=== PATIENT | female | born 1950 | race Caucasian/White ===

== ENCOUNTER 2017-01-05 03:21 | Emergency (ER) | payer MEDICARE, OTHER ==
[~2017-01-05] VITALS: Ht 157.5 cm; Wt 130.6 kg
[~2017-01-05 03:21] MED LIST: ALLO100T PO; ATOR80TA26 PO; BUPR-51 PO; BUSP15TA3 PO; CALC0.25 PO; CARV25TA33 PO; CHOL100055 PO; CITA-108 PO; FURO40TA5 PO; HYDR-4246 PO; LOSA100T44 PO; METO25TA6 PO; POTA10TA14 PO; TRAM-277 PO
--- OUTSIDE RECORDS SUMMARY | 2017-01-05 03:32 | XMS REPORT | Continuity of Care Document ---
Author Author [facility] Organization [facility] Address Unknown Phone Unavailable Allergies Medications Problems Procedures Results Encounters ACCT No. Visit Date/Time Discharge Status Pt. Type Provider Facility Loc./Unit Complaint [id number] 01/05/2014 09:37:00 01/05/2014 23 :59:59 [facility] Outpatient [id number] 12/14/2013 10:56:00 12/14/2013 23 :59:59 [facility] [id number] 11/27/2013 10:42:00 11/27/2013 23 :59:59 [facility] Outpatient
--- OUTSIDE RECORDS SUMMARY | 2017-01-05 03:32 | XMS REPORT ---
Author Author Ingrid Rendon [facility] eClinicalWorks Address Unknown Phone Unavailable Care Team Providers Care Alteration Manager Name Role Phone Ingrid Rendon Unavailable Allergies No Known Allergies Problems Problem Type Condition Code Onset Dates Condition Status Assessment Cough R05 Active Assessment Solitary pulmonary nodule R91.1 Active Problem Essential (primary) hypertension I10 Active Problem Chronic kidney disease, stage 3 (moderate) N18.3 Active Problem Unspecified asthma, uncomplicated J45.909 Active Problem Essential hypertension, benign 401.1 Active Problem Depressive disorder, not elsewhere classified 311 Active Problem Chronic kidney disease, Stage III (moderate) 585.3 Active Problem Congestive heart failure, unspecified I50.9 Active Medications No Known Medications Results No Known Results Summary Purpose eClinicalWorks Submission
--- OUTSIDE RECORDS SUMMARY | 2017-01-05 03:32 | XMS REPORT ---
Author Author Ingrid Rendon [facility] eClinicalWorks Address Unknown Phone Unavailable Care Team Providers Care Machine Hose Cutter Name Role Phone Ingrid Rendon Unavailable Allergies No Known Allergies Problems Problem Type Condition Code Onset Dates Condition Status Problem Essential (primary) hypertension I10 Active Problem [...]
--- OUTSIDE RECORDS SUMMARY | 2017-01-05 03:32 | XMS REPORT ---
Author Author Ingrid Rendon [facility] eClinicalWorks Address Unknown Phone Unavailable Care Team Providers Care Grocery Clerk Checking Name Role Phone Ingrid Rendon Unavailable Allergies No Known Allergies Problems Problem Type Condition Code Onset Dates Condition Status Problem Chronic kidney disease, stage 3 (moderate) N18.3 Active Problem Chronic kidney disease, Stage III (moderate) 585.3 Active Problem Essential (primary) hypertension I10 Active Problem Depressive disorder, not elsewhere classified 311 Active Problem Congestive heart failure, unspecified 428.0 Active Problem Essential hypertension, benign 401.1 Active Medications No Known Medications Results No Known Results Summary Purpose eClinicalWorks Submission
--- OUTSIDE RECORDS SUMMARY | 2017-01-05 03:32 | XMS REPORT ---
Author Author Ingrid Rendon [facility] eClinicalWorks Address Unknown Phone Unavailable Care Team Providers Care Air Pollution Auditor Name Role Phone Ingrid Rendon Unavailable Allergies [...]
--- OUTSIDE RECORDS SUMMARY | 2017-01-05 03:32 | XMS REPORT ---
Author Ingrid Rivera eClinicalWorks Address Unknown Phone Unavailable Care Team Providers Care Outside Sales Consultant Name Role Phone Ingrid Rendon Unavailable Allergies, Adverse Reactions, Alerts Substance Reaction Event Type Codeine Phosphate vomiting, stomach upset Drug Allergy Problems Problem Type Condition Code Onset Dates Condition Status Assessment Other specified respiratory disorders J98.8 Active Assessment Congestive heart failure, unspecified I50.9 Active Assessment Solitary pulmonary nodule R91.1 Active Assessment Cough R05 Active Assessment Dependence on supplemental oxygen Z99.81 Active Problem Essential (primary) hypertension I10 Active Problem Chronic kidney disease, stage 3 (moderate) N18.3 Active Problem Unspecified asthma, uncomplicated J45.909 Active Problem Essential hypertension, benign 401.1 Active Problem Depressive disorder, not elsewhere classified 311 Active Problem Chronic kidney disease, Stage III (moderate) 585.3 Active Problem Congestive heart failure, unspecified I50.9 Active Medications Medication Code System Code Instructions Start Date End Date Status Dosage Potassium Citrate ND 0 not defined Carvedilol [facility] [address]-37 25 MG Orally Twice a day 1 tablet with food PredniSONE [facility] [address]-50 10 MG Orally as directed. Jul 06, 2016 4 tabs daily X3 days then 2 tabs daily X3 days then 1 tab daily X3 days then stop. ProAir HFA [facility] [address]-53 108 (90 Base) MCG/ACT Inhalation every 4-6 hrs May 28, 2016 2 puffs as needed Calcitriol [facility] [address]-74 0.25 MCG Orally Once a day 1 capsule Levaquin [facility] [address]-30 750 MG Orally every 24 hrs Jul 06, 2016 1 tablet Vitamin D [facility] 40445-[address] 400 UNIT Orally not defined Losartan Potassium [facility] [address]-19 100 MG Orally Once a day 1 tablet Allopurinol [facility] [address]-47 100 MG Orally Once a day Oct 14, 2016 1 tablet BuPROPion HCl (XL) [facility] [address]-09 150 MG Orally Once a day Nov 30, 2014 1 tablet in the morning Zolpidem Tartrate [facility] [address]-64 10 MG Orally Once a day prn 1/ 2-1 tablet Furosemide [facility] [address]-67 40 MG Orally Once a day 1 tablet BusPIRone HCl [facility] [address]-34 15 MG Orally Twice a day 1 tablet Tessalon Perles [facility] [address]-39 100 MG Orally every 8 hours Jul 06, 2016 1 to 2 capsules as needed every 8 hours for cough/congestion Atorvastatin Calcium [facility] [address]-40 80 MG Orally Once a day 1 tablet Citalopram Hydrobromide [facility] [address]-37 40 MG Orally Once a day 1 tablet Hydrocodone-Acetaminophen [facility] [address]-25 7.5-325 MG Orally every 4-6 hrs 1 tablet as needed Procedures Procedure Coding System Code Date OFFICE VISIT, EST-LOW COMPLEXITY (15 MIN.) CPT-4 47412 Jul 30, 2016 [facility] visit Established Patient CPT-4 G0467 Jul 30, 2016 Vital Signs Date/Time: Jul 30, 2016 Temperature 98.0 F Height 62 in Weight 290.8 lbs Blood Pressure Diastolic 80 mm Hg Blood Pressure Systolic 132 mm Hg Cardiac Monitoring Heart Rate 70 /min BMI 53.18 Index Oximetry 97 % Respiratory Rate 18 /min Results No Known Results Summary Purpose eClinicalWorks Submission
--- OUTSIDE RECORDS SUMMARY | 2017-01-05 03:32 | XMS REPORT ---
Author Author Ingrid Rendon [facility] eClinicalWorks Address Unknown Phone Unavailable Care Team Providers Care Hair Boiler Name Role Phone Ingrid Rendon Unavailable Allergies No Known Allergies Problems Problem Type Condition Code Onset Dates Condition Status Problem Congestive heart failure, unspecified 428.0 Active Problem Essential hypertension, benign 401.1 Active Problem Chronic kidney disease, Stage III (moderate) 585.3 Active Problem Depressive disorder, not elsewhere classified 311 Active Medications Medication Code System Code Instructions Start Date End Date Status Dosage Atorvastatin Calcium [facility] [address]-26 80 MG Orally Once a day 1 tablet Results No Known Results Summary Purpose eClinicalWorks Submission
--- OUTSIDE RECORDS SUMMARY | 2017-01-05 03:32 | XMS REPORT ---
Author Geronimo Joyce Organization eClinicalWorks Address Unknown Phone Unavailable Care Team Providers Care Health And Safety Specialist Name Role Phone Geronimo Wan CP Unavailable Allergies, Adverse Reactions, Alerts Substance Reaction Event Type Codeine Phosphate vomiting, stomach upset Drug Allergy Problems Problem Type Condition Code Onset Dates Condition Status Assessment Dizziness and giddiness R42 Active Assessment Acute bronchitis due to other specified organisms J20.8 Active Assessment Solitary pulmonary nodule R91.1 Active Assessment Diarrhea, unspecified R19.7 Active Problem Essential (primary) hypertension I10 Active [...] Date End Date Status Dosage Atorvastatin Calcium [facility] [address]-81 80 MG Orally Once a day 1 tablet Carvedilol [facility] [address]-91 25 MG Orally Twice a day 1 tablet with food ProAir HFA [facility] [address]-53 108 (90 Base) MCG/ACT Inhalation every 4-6 hrs May 28, 2016 2 puffs as needed Calcitriol [facility] [address]-79 0.25 MCG Orally Once a day 1 capsule Hydrocodone-Acetaminophen [facility] [address]-68 7.5-325 MG Orally every 4-6 hrs 1 tablet as needed Vitamin D [facility] [address] 400 UNIT Orally not defined Levaquin [facility] [address]-68 750 MG Orally every 24 hrs Jul 06, 2016 1 tablet PredniSONE [facility] [address]-66 10 MG Orally as directed. Jul 06, 2016 4 tabs daily X3 days then 2 tabs daily X3 days then 1 tab daily X3 days then stop. BusPIRone HCl [facility] [address]-49 15 MG Orally Twice a day 1 tablet Allopurinol [facility] [address]-76 100 MG Orally Once a day Oct 14, 2016 1 tablet Zolpidem Tartrate [facility] [address]-88 10 MG Orally Once a day prn 1/ 2-1 tablet Furosemide [facility] [address]-15 40 MG Orally Once a day 1 tablet BuPROPion HCl (XL) [facility] [address]-44 150 MG Orally Once a day Nov 30, 2014 1 tablet in the morning Tessalon Perles [facility] [address]-29 100 MG Orally every 8 hours Jul 06, 2016 1 to 2 capsules as needed every 8 hours for cough/congestion Potassium Citrate NDC 0 not defined Citalopram Hydrobromide [facility] [address]-05 40 MG Orally Once a day 1 tablet Losartan Potassium [facility] [address]-80 100 MG Orally Once a day 1 tablet Procedures Procedure Coding System Code Date OFFICE VISIT, EST-LOW COMPLEXITY (15 MIN.) CPT-4 68157 Jul 10, 2016 [facility] visit Established Patient CPT-4 G0467 Jul 10, 2016 Vital Signs Date/Time: Jul 10, 2016 Temperature 98.3 F Height 62 in Weight 284.4 lbs Blood Pressure Diastolic 82 mm Hg Blood Pressure Systolic 138 mm Hg Cardiac Monitoring Heart Rate 84 /min BMI 52.01 Index Oximetry 94 % Results No Known Results Summary Purpose eClinicalWorks Submission
--- OUTSIDE RECORDS SUMMARY | 2017-01-05 03:33 | XMS REPORT ---
Author Author Ingrid Rendon [facility] eClinicalWorks Address Unknown Phone Unavailable Care Team Providers Care Solar Crew Member Name Role Phone Ingrid Rendon Unavailable Allergies No Known Allergies Problems Problem Type Condition ICD-9 Code Onset Dates Condition Status Problem Congestive heart failure, unspecified 428.0 Active Problem Essential hypertension, benign 401.1 Active Problem Chronic kidney disease, Stage III (moderate) 585.3 Active Problem Depressive disorder, not elsewhere classified 311 Active Medications No Known Medications Results No Known Results Summary Purpose eClinicalWorks Submission
--- OUTSIDE RECORDS SUMMARY | 2017-01-05 03:33 | XMS REPORT ---
Author Ingrid Rivera eClinicalWorks Address Unknown Phone Unavailable Care Team Providers Care Machine Operator General Name Role Phone Ingrid Rendon Unavailable Allergies, Adverse Reactions, Alerts Substance Reaction Event Type Codeine Phosphate vomiting, stomach upset Drug Allergy Problems Problem Type Condition Code Onset Dates Condition Status Problem Congestive heart failure, unspecified 428.0 Active Problem Essential hypertension, benign 401.1 Active Problem Chronic kidney disease, Stage III (moderate) 585.3 Active Assessment Other viral agents as the cause of diseases classified elsewhere B97.89 Active Assessment Other fatigue R53.83 Active Problem Depressive disorder, not elsewhere classified 311 Active Assessment Other nonspecific lymphadenitis I88.8 Active Medications Medication Code System Code Instructions Start Date End Date Status Dosage Vitamin D [facility] [address] 400 UNIT Orally not defined Carvedilol [facility] [address]-16 25 MG Orally Twice a day 1 tablet with food Atorvastatin Calcium [facility] [address]-35 80 MG Orally Once a day 1 tablet Potassium Citrate ND 0 not defined Allopurinol [facility] [address]-06 100 MG Orally Once a day 1 tablet Citalopram Hydrobromide [facility] [address]-91 40 MG Orally Once a day 1 tablet Losartan Potassium [facility] [address]-25 100 MG Orally Once a day 1 tablet BuPROPion HCl (XL) [facility] [address]-59 150 MG Orally Once a day Nov 30, 2014 1 tablet in the morning BusPIRone HCl [facility] [address]-58 15 MG Orally Twice a day 1 tablet Furosemide [facility] [address]-79 40 MG Orally Once a day 1 tablet Zolpidem Tartrate [facility] [address]-50 10 MG Orally Once a day prn 1/ 2-1 tablet Calcitriol [facility] [address]-85 0.25 MCG Orally Once a day 1 capsule Procedures Procedure Coding System Code Date OFFICE VISIT, EST-LOW COMPLEXITY (15 MIN.) CPT-4 21662 Aug 24, 2015 COMPLETE CBC W/AUTO DIFF WBC CPT-4 07154 Aug 24, 2015 [facility] visit Established Patient CPT-4 G0467 Aug 24, 2015 IH CMP CPT-4 77420 Aug 24, 2015 TSH WITH REFLEX T4 CPT-4 72615 Aug 24, 2015 Vital Signs Date/Time: Aug 24, 2015 Height 62 in Weight 289.25 lbs Temperature 98.2 F Blood Pressure Diastolic 70 mm Hg Blood Pressure Systolic 132 mm Hg Cardiac Monitoring Heart Rate 76 /min BMI 52.90 Index Respiratory Rate 16 /min Results Name Result Date Reference Range Unit Abnormality Flag Ultrasound : Neck In House CMP CBC With Platelet and Differential Summary Purpose eClinicalWorks Submission
--- OUTSIDE RECORDS SUMMARY | 2017-01-05 03:33 | XMS REPORT ---
Author Author Jose Lagos [facility] eClinicalWorks Address Unknown Phone Unavailable Care Team Providers Care Chief Resource Officer Name Role Phone Jose Lagos CP Unavailable Allergies, Adverse Reactions, Alerts Substance Reaction Event Type Codeine Phosphate vomiting, stomach upset Drug Allergy Problems Problem Type Condition Code Onset Dates Condition Status Problem Chronic kidney disease, stage 3 (moderate) N18.3 Active Problem Chronic kidney disease, Stage III (moderate) 585.3 Active Problem Essential (primary) hypertension I10 Active Problem Depressive disorder, not elsewhere classified 311 Active Assessment Encounter for dental examination and cleaning without abnormal findings Z01.20 Active Problem Congestive heart failure, unspecified 428.0 Active Problem Essential hypertension, benign 401.1 Active Medications Medication Code System Code Instructions Start Date End Date Status Dosage BusPIRone HCl [facility] [address]-58 15 MG Orally Twice a day 1 tablet Atorvastatin Calcium [facility] [address]-84 80 MG Orally Once a day 1 tablet Potassium Citrate NDC 0 not defined Allopurinol [facility] [address]-29 100 MG Orally Once a day Oct 14, 2016 1 tablet Furosemide [facility] [address]-91 40 MG Orally Once a day 1 tablet Zolpidem Tartrate [facility] [address]-76 10 MG Orally Once a day prn 1/ 2-1 tablet Citalopram Hydrobromide [facility] [address]-23 40 MG Orally Once a day 1 tablet Carvedilol [facility] [address]-75 25 MG Orally Twice a day 1 tablet with food Vitamin D [facility] [address] 400 UNIT Orally not defined Losartan Potassium [facility] [address]-11 100 MG Orally Once a day 1 tablet BuPROPion HCl (XL) [facility] [address]-86 150 MG Orally Once a day Nov 30, 2014 1 tablet in the morning Calcitriol [facility] [address]-37 0.25 MCG Orally Once a day 1 capsule Procedures Procedure Coding System Code Date INTRAORL - CMPL SERIES CODE 50736 CPT-4 D0210 May 21, 2016 COMP ORAL EVALUATION - NEW/EST PT CPT-4 D0150 May 21, 2016 Results No Known Results Summary Purpose eClinicalWorks Submission
--- OUTSIDE RECORDS SUMMARY | 2017-01-05 03:33 | XMS REPORT ---
Author Ingrid Rivera [facility] eClinicalWorks Address Unknown Phone Unavailable Care Team Providers Care Cw Operator Name Role Phone Ingrid Rendon Unavailable Allergies No Known Allergies Problems Problem Type Condition ICD-9 Code Onset Dates Condition Status Assessment Chronic kidney disease, Stage III (moderate) 585.3 Active Problem Congestive heart failure, unspecified 428.0 Active Problem Essential hypertension, benign 401.1 Active Problem Chronic kidney disease, Stage III (moderate) 585.3 Active Assessment Unspecified vitamin D deficiency 268.9 Active Assessment Secondary hyperparathyroidism (of renal origin) 588.81 Active Problem Depressive disorder, not elsewhere classified 311 Active Assessment Gout, unspecified 274.9 Active Medications Medication Code System Code Instructions Start Date End Date Status Dosage Atorvastatin Calcium [facility] [address]-65 80 MG Orally Once a day 1 tablet Zolpidem Tartrate [facility] [address]-66 10 MG Orally Once a day /2-1 tablet Citalopram Hydrobromide [facility] [address]-39 40 MG Orally Once a day 1 1/2 tablet Losartan Potassium [facility] [address]-87 100 MG Orally Once a day 1 tablet BusPIRone HCl [facility] [address]-02 15 MG Orally Twice a day 1 tablet Allopurinol [facility] [address]-62 100 MG Orally Once a day 1 tablet Calcitriol [facility] [address]-35 0.25 MCG Orally Three times a week 1 capsule Carvedilol [facility] [address]-83 25 MG Orally Twice a day 1 tablet with food Vitamin D [facility] [address] 400 UNIT Orally not defined BuPROPion HCl (XL) [facility] [address]-23 150 MG Orally Once a day Nov 30, 2014 1 tablet in the morning Klor-Con M20 [facility] [address]-60 20 MEQ Orally Once a day 1 tablet Furosemide [facility] [address]-99 40 MG Orally Once a day 1 tablet Procedures Procedure Coding System Code Date URIC ACID CPT-4 62522 Jun 27, 2015 RENAL FUNCTION PANEL CPT-4 80014 Jun 27, 2015 PTH CPT-4 72442 Jun 27, 2015 VITAMIN D 25 HYDROXY CPT-4 65489 Jun 27, 2015 Results No Known Results Summary Purpose eClinicalWorks Submission
--- OUTSIDE RECORDS SUMMARY | 2017-01-05 03:33 | XMS REPORT | Continuity of Care Document ---
Author Author Yasmine Bond [facility] Address Unknown Phone Unavailable Care Team Providers Care Client Relations Representative Name Role Phone Robert Zavala PP Unavailable Payers Payer name Insurance type Covered green party ID Authorization(s) Unknown Problems Condition Effective Dates (start - stop) Clinical Status Headache - *Acute Hypertension, Benign - *Chronic Other abnormal blood chemistry - Improved COPD - *Controlled Sleep Apnea - *Controlled CAD, Unspecified - *Controlled Obesity - *Chronic Depression - *Controlled Hypertension, Benign - *Controlled COPD - *Controlled Chronic kidney disease, Stage II (mild) - Mild Other and unspecified hyperlipidemia - *Controlled Migraine - *Controlled Depression - *Controlled Abdominal pain, right upper quadrant - *Resolved Other abnormal blood chemistry - *Chronic Hypertension, Benign - *Chronic COPD - *Chronic Obesity - *Chronic Insomnia, Other - *Chronic Gout, unspecified - *Chronic Osteoarthrosis, generalized, involving unspecified site - * Chronic Diabetes Mellitus Type 2, Uncomplicated - *Controlled Hypertension, Benign - *Chronic Osteoarthrosis, generalized, involving unspecified site - * Controlled COPD - *Controlled Other and unspecified hyperlipidemia - *Controlled Contact dermatitis and other eczema, unspecified cause - *Acute Insomnia, Other - *Chronic Depression - *Controlled CAD, Unspecified - *Chronic COPD - *Chronic Hypertension, Benign - *Chronic Chronic kidney disease, Stage II (mild) - Mild Upper Respiratory Infection, Acute - *Acute OTHER ABNORMAL GLUCOSE - *Chronic Pain in thoracic spine - *Acute COPD - *Chronic Chronic kidney disease, Stage III (moderate) - Moderate Hypertension, Benign - *Chronic Other and unspecified hyperlipidemia - *Chronic Insomnia, Other - *Controlled Depression - *Chronic Gout, unspecified - *Chronic Knee pain - *Acute Edema - *Acute Pain in limb - *Acute Hypertension, benign - *Chronic COPD - *Chronic Chronic kidney disease, stage III (moderate) - Moderate Coronary atherosclerosis - *Chronic Other specified erythematous condition - *Acute Edema - *Acute Cough - *Chronic COPD - *Chronic Dependence on supplemental oxygen - *Chronic COPD - *Chronic CAD, Unspecified - *Chronic Chronic kidney disease, Stage III (moderate) - Moderate Gout, unspecified - *Chronic Fatigue / Malaise - *Chronic Obesity - *Chronic Abdominal Pain - *Acute COPD - *Chronic Hypertension, Benign - *Chronic Chronic kidney disease, Stage II (mild) - Mild Urinary Tract Infection - *Chronic CAD, Unspecified - *Chronic Hypertension, Benign - *Chronic COPD - *Chronic Headache - *Chronic Anxiety - *Chronic Depression - *Chronic Chronic kidney disease, Stage II (mild) - Mild COPD - *Chronic Hypertension, Benign - *Chronic Other and unspecified hyperlipidemia - *Chronic CAD, Unspecified - *Chronic Chronic kidney disease, Stage II (mild) - Mild Depression - *Chronic Insomnia, Other - *Chronic Family History Family Member Diagnosis Age At Onset Status Father (Unknown) CAD Yes Mother (Unknown) Alzheimer's Disease Yes Mother (Unknown) Cancer - breast Yes Social History Social History Element Description Quantity Unknown Allergies, Adverse Reactions, Alerts Substance Reaction Severity Status CODEINE PHOSPHATE vominting Unknown Medications Medication Instructions Dosage Effective Dates (start - stop) Status losartan 50 mg tablet 1 po bid 50 MG - No Longer Active Victoza 3-Billy 0.6 mg/0.1 mL (18 mg/3 mL) subcutaneous pen injector inject 0.6 Milliliter (3.6MG) by subcutaneous route every day 3.6 MG - No Longer Active Celexa 20 mg tablet Take 1 1/2 tabs po qd. 20 MG - No Longer Active Senna Lax 8.6 mg tablet take 2 tablet by oral route every day as needed for constipation 0 - Active budesonide 0.5 mg/2 mL suspension for nebulization inhale 2 milliliter (0.5MG ) by nebulization route every day 0.5 MG - Active furosemide 40 mg tablet take 1 Tablet (40MG) by oral route 2 times every day 40 MG - Active inhale 14/8 cm by nasal route q HS with 02 2 L - Active Proventil HFA 90 mcg/actuation aerosol inhaler inhale 2 puff by inhalation route every 6 hours as needed 0 - Active atorvastatin 80 mg tablet take 1 tablet (80MG) by oral route every day 80 MG - Active Ambien 10 mg tablet take 1/2 - 1 Tablet (5MG) by oral route every night at bedtime as needed for sleep 5 MG - Active [place] 5 mg-325 mg tablet take 1 - 2 Tablet by oral route every 8 hours as needed for pain 0 - Active tramadol 50 mg tablet take 1 - 2 Tablet (50MG) by Oral route every 8 hours as needed 50 MG - Active allopurinol 100 mg tablet 1 po qd - Active sumatriptan 100 mg tablet take 1 tablet (100MG) by oral route at start of migraine. March take 1 po again in 2 hrs prn. 100 MG - Active buspirone 15 mg tablet take 1 tablet (15MG) by oral route 2 times every day 15 MG - Active losartan 50 mg tablet 1 po bid 50 MG - Active Victoza 3-Billy 0.6 mg/0.1 mL (18 mg/3 mL) subcutaneous pen injector inject 0.3 milliliter (1.8MG) by subcutaneous route every day 1.8 MG - Active Coreg 25 mg tablet take 1 tablet (25MG) by oral route 2 times every day with food 25 MG - Active Celexa 40 mg tablet Increase to 1 1/2 tabs po qd. - Active Immunizations Vaccine Date Status Comments flu (split) (3 yrs or older) completed - Completed reason: public agency Results Test Name Date and Time Measure Units Reference Range Abnormal Flag Comments Unknown Vital Signs Date / Time: Height Weight Pulse Rate Blood Pressure Temperature /10:56:00 62.00 in 281.00 lbs 140/80 mm[Hg] 97.5 F Procedures Procedure Date Unknown Encounters Encounter Location Date Patient Visit [facility] Patient Visit [facility] Patient Visit [facility] Patient Visit [facility] Patient Visit [facility] Patient [facility] Patient [facility] Patient [facility] Patient [facility] Patient [facility] Patient [facility] Patient [facility] Patient [facility] Patient [facility] Patient [facility] Patient [facility] Patient [facility] Patient Visit [facility] Patient Visit [facility] Patient Visit [facility] Patient Visit [facility] Advance Directives Directive Effective Date Unknown
--- OUTSIDE RECORDS SUMMARY | 2017-01-05 03:33 | XMS REPORT ---
Author Author Merry Sinha [facility] eClinicalWorks Address Unknown Phone Unavailable Care Team Providers Care Joint Sealer Name Role Phone Merry Sinha Unavailable Allergies, Adverse Reactions, Alerts Substance Reaction Event Type Codeine Phosphate vomiting, stomach upset Drug Allergy Problems Problem Type Condition Code Onset Dates Condition Status Assessment Acute pain of right shoulder M25.511 Active Problem Chronic kidney disease, stage 3 (moderate) N18.3 Active Problem Chronic kidney disease, Stage III (moderate) 585.3 Active Problem Essential (primary) hypertension I10 Active Problem Depressive disorder, not elsewhere classified 311 Active Assessment Congestive heart failure, unspecified I50.9 Active Problem Congestive heart failure, unspecified I50.9 Active Problem Essential hypertension, benign 401.1 Active Medications Medication Code System Code Instructions Start Date End Date Status Dosage Zolpidem Tartrate [facility] [address]-61 10 MG Orally Once a day prn 1/ 2-1 tablet Vitamin D [facility] [address] 400 UNIT Orally not defined Potassium Citrate [facility] 0 not defined Hydrocodone-Acetaminophen [facility] [address]-61 7.5-325 MG Orally every 4-6 hrs 1 tablet as needed Calcitriol [facility] [address]-59 0.25 MCG Orally Once a day 1 capsule BusPIRone HCl [facility] [address]-33 15 MG Orally Twice a day 1 tablet Allopurinol [facility] [address]-07 100 MG Orally Once a day Oct 14, 2016 1 tablet BuPROPion HCl (XL) [facility] [address]-66 150 MG Orally Once a day Nov 30, 2014 1 tablet in the morning Losartan Potassium [facility] [address]-76 100 MG Orally Once a day 1 tablet Furosemide [facility] [address]-39 40 MG Orally Once a day 1 tablet Atorvastatin Calcium [facility] [address]-55 80 MG Orally Once a day 1 tablet ProAir HFA [facility] [address]-74 108 (90 Base) MCG/ACT Inhalation every 4-6 hrs May 28, 2016 2 puffs as needed Citalopram Hydrobromide [facility] [address]-03 40 MG Orally Once a day 1 tablet Carvedilol [facility] [address]-76 25 MG Orally Twice a day 1 tablet with food Flexeril [facility] [address]-80 5 MG Orally three times a day as needed Jun 12, 2016 Jun 22, 2016 1 tablet Procedures Procedure Coding System Code Date OFFICE VISIT, EST-LOW COMPLEXITY (15 MIN.) CPT-4 47502 Jun 12, 2016 [facility] visit Established Patient CPT-4 G0467 Jun 12, 2016 Vital Signs Date/Time: Jun 12, 2016 Temperature 99.4 F Height 62 in Weight 282.4 lbs Blood Pressure Diastolic 67 mm Hg Blood Pressure Systolic 134 mm Hg Cardiac Monitoring Heart Rate 68 /min BMI 51.65 Index Oximetry 92 % Results No Known Results Summary Purpose eClinicalWorks Submission
--- OUTSIDE RECORDS SUMMARY | 2017-01-05 03:33 | XMS REPORT ---
Author Ingrid Rivera eClinicalWorks Address Unknown Phone Unavailable Care Team Providers Care Patient Information Coordinator Name Role Phone Ingrid Rendon Unavailable Allergies, Adverse Reactions, Alerts Substance Reaction Event Type Codeine Phosphate vomiting, stomach upset Drug Allergy Problems Problem Type Condition Code Onset Dates Condition Status Assessment Congestive heart failure, unspecified 428.0 Active Assessment Other bursitis disorders 727.3 Active Problem Congestive heart failure, unspecified 428.0 Active Problem Essential hypertension, benign 401.1 Active Problem Chronic kidney disease, Stage III (moderate) 585.3 Active Assessment Depressive disorder, not elsewhere classified 311 Active Assessment Chronic kidney disease, Stage III (moderate) 585.3 Active Problem Depressive disorder, not elsewhere classified 311 Active Assessment Essential hypertension, benign 401.1 Active Medications Medication Code System Code Instructions Start Date End Date Status Dosage Allopurinol [facility] [address]-98 100 MG Orally Once a day 1 tablet Calcitriol [facility] [address]-33 0.25 MCG Orally Three times a week 1 capsule Atorvastatin Calcium [facility] [address]-14 80 MG Orally Once a day 1 tablet Carvedilol [facility] [address]-89 25 MG Orally Twice a day 1 tablet with food Zolpidem Tartrate [facility] [address]-32 10 MG Orally Once a day 1/2-1 tablet Tramadol HCl [facility] [address]-04 50 MG Orally every 6 hrs February 02, 2015 April 03, 2015 1 tablet as needed Naproxen [facility] [address]-77 500 MG Orally every 12 hrs for 1-2 wks then prn February 03, 2015 March 05, 2015 1 tablet as needed BuPROPion HCl (XL) [facility] [address]-70 150 MG Orally Once a day Nov 30, 2014 1 tablet in the morning PredniSONE [facility] [address]-04 20 MG Orally Once a day February 03, 2015 February 07, 2015 3 tablets x1 day, 2 tabs x1 day, 1 tab x1 day, 1/2 tab x1 day Losartan Potassium [facility] [address]-68 100 MG Orally Once a day 1 tablet BusPIRone HCl [facility] [address]-69 15 MG Orally Twice a day 1 tablet Furosemide [facility] [address]-82 40 MG Orally Once a day 1 tablet Klor-Con M20 [facility] [address]-38 20 MEQ Orally Once a day 1 tablet Citalopram Hydrobromide [facility] [address]-77 40 MG Orally Once a day 1 tablet Procedures Procedure Coding System Code Date OFFICE VISIT, EST-MOD. COMPLEXITY (25 MIN) CPT-4 95532 February 02, 2015 [facility] visit Established Patient CPT-4 G0467 February 02, 2015 Vital Signs Date/Time: February 02, 2015 Height 62 in Weight 293.8 lbs Temperature 98.7 F Blood Pressure Diastolic 63 mm Hg Blood Pressure Systolic 124 mm Hg Cardiac Monitoring Heart Rate 79 /min BMI 53.73 Index Respiratory Rate 14 /min Results No Known Results Summary Purpose eClinicalWorks Submission
--- OUTSIDE RECORDS SUMMARY | 2017-01-05 03:33 | XMS REPORT ---
Author Ingrid Rivera eClinicalWorks Address Unknown Phone Unavailable Care Team Providers Care Clerical Stock Inspector Name Role Phone Ingrid Rendon Unavailable Allergies, Adverse Reactions, Alerts Substance Reaction Event Type Codeine Phosphate vomiting, stomach upset Drug Allergy Problems Problem Type Condition Code Onset Dates Condition Status Problem Congestive heart failure, unspecified 428.0 Active Problem Essential hypertension, benign 401.1 Active Problem Chronic kidney disease, Stage III (moderate) 585.3 Active Problem Depressive disorder, not elsewhere classified 311 Active Assessment Other specified disorders of rotator cuff syndrome of shoulder and allied disorders 726.19 Active Medications Medication Code System Code Instructions Start Date End Date Status Dosage Citalopram Hydrobromide [facility] [address]-40 40 MG Orally Once a day 1 tablet Allopurinol [facility] [address]-53 100 MG Orally Once a day 1 tablet BuPROPion HCl (XL) [facility] [address]-06 150 MG Orally Once a day Nov 30, 2014 1 tablet in the morning Calcitriol [facility] [address]-08 0.25 MCG Orally Three times a week 1 capsule Carvedilol [facility] [address]-00 25 MG Orally Twice a day 1 tablet with food Tramadol HCl [facility] [address]-54 50 MG Orally every 6 hrs February 02, 2015 2015 1 tablet as needed PredniSONE [facility] [address]-19 20 MG Orally Once a day February 03, 2015 February 07, 2015 3 tablets x1 day, 2 tabs x1 day, 1 tab x1 day, 1/2 tab x1 day Atorvastatin Calcium [facility] [address]-06 80 MG Orally Once a day 1 tablet Zolpidem Tartrate [facility] [address]-63 10 MG Orally Once a day 1/2-1 tablet Furosemide [facility] [address]-59 40 MG Orally Once a day 1 tablet Vitamin D [facility] [address]96[address] 400 UNIT Orally not defined BusPIRone HCl [facility] [address]-72 15 MG Orally Twice a day 1 tablet Losartan Potassium [facility] [address]-16 100 MG Orally Once a day 1 tablet Klor-Con M20 [facility] [address]-14 20 MEQ Orally Once a day 1 tablet Procedures Procedure Coding System Code Date OFFICE VISIT, EST-LOW COMPLEXITY (15 MIN.) CPT-4 16468 March 30, 2015 [facility] visit Established Patient CPT-4 G0467 March 30, 2015 Vital Signs Date/Time: March 30, 2015 Height 62 in Weight 294.08 lbs Temperature 98.7 F Blood Pressure Diastolic 80 mm Hg Blood Pressure Systolic 130 mm Hg Cardiac Monitoring Heart Rate 60 /min BMI 53.78 Index Respiratory Rate 16 /min Results No Known Results Summary Purpose eClinicalWorks Submission
--- OUTSIDE RECORDS SUMMARY | 2017-01-05 03:33 | XMS REPORT ---
Author Author Ingrid Rendon [facility] eClinicalWorks Address Unknown Phone Unavailable Care Team Providers Care Professor Of English Name Role Phone Ingrid Rendon Unavailable Allergies No Known Allergies Problems Problem Type Condition ICD-9 Code Onset Dates Condition Status Problem Congestive heart failure, unspecified 428.0 Active Problem Essential hypertension, benign 401.1 Active Problem Chronic kidney disease, Stage III (moderate) 585.3 Active Problem Depressive disorder, not elsewhere classified 311 Active Medications Medication Code System Code Instructions Start Date End Date Status Dosage Carvedilol [facility] [address]-83 25 MG Orally Twice a day 1 tablet with food Results No Known Results Summary Purpose eClinicalWorks Submission
--- OUTSIDE RECORDS SUMMARY | 2017-01-05 03:34 | XMS REPORT ---
Author Ingrid Rivera [facility] eClinicalWorks Address Unknown Phone Unavailable Care Team Providers Care Shopper'S Aide Name Role Phone Ingrid Rendon Unavailable Allergies No Known Allergies Problems Problem Type Condition Code Onset Dates Condition Status Assessment Insomnia, unspecified 780.52 Active Assessment Chronic kidney disease, Stage III (moderate) 585.3 Active Assessment Depressive disorder, not elsewhere classified 311 Active Problem Congestive heart failure, unspecified 428.0 Active Problem Essential hypertension, benign 401.1 Active Problem Chronic kidney disease, Stage III (moderate) 585.3 Active Assessment Congestive heart failure, unspecified 428.0 Active Assessment Hypercholesterolemia 272.2 Active Problem Depressive disorder, not elsewhere classified 311 Active Assessment Essential hypertension, benign 401.1 Active Medications Medication Code System Code Instructions Start Date End Date Status Dosage Losartan Potassium [facility] [address]-14 100 MG Orally Once a day 1 tablet BusPIRone HCl [facility] [address]-29 15 MG Orally Twice a day 1 tablet Citalopram Hydrobromide [facility] [address]-50 40 MG Orally Once a day 1 tablet Zolpidem Tartrate [facility] [address]-80 10 MG Orally Once a day 1/2-1 tablet Carvedilol [facility] [address]-64 25 MG Orally Twice a day 1 tablet with food Atorvastatin Calcium [facility] [address]-58 80 MG Orally Once a day 1 tablet Allopurinol [facility] [address]-57 100 MG Orally Once a day 1 tablet BuPROPion HCl (XL) [facility] [address]-93 150 MG Orally Once a day Nov 30, 2014 1 tablet in the morning BuPROPion HCl [facility] [address]-56 75 MG Orally Once a day 1 tablet Procedures Procedure Coding System Code Date LIPID PANEL CPT-4 21435 Nov 30, 2014 MAGNESIUM CPT-4 52315 Nov 30, 2014 COMPLETE CBC W/AUTO DIFF WBC CPT-4 70122 Nov 30, 2014 TSH WITH REFLEX T4 CPT-4 65617 Nov 30, 2014 RENAL FUNCTION PANEL CPT-4 10304 Nov 30, 2014 MICROALBUMIN- MICRO ALB/CREAT RATIO CPT-4 85995 Nov 30, 2014 CREATININE-MICROALB/CREAT RATION URINE CPT-4 99595 Nov 30, 2014 Results No Known Results Summary Purpose eClinicalWorks Submission
--- OUTSIDE RECORDS SUMMARY | 2017-01-05 03:34 | XMS REPORT ---
Author Author Ingrid Rendon [facility] eClinicalWorks Address Unknown Phone Unavailable Care Team Providers Care Pulmonary Function Technologist Name Role Phone Ingrid Rendon Unavailable Allergies [...] Start Date End Date Status Dosage Allopurinol [facility] [address]-06 100 MG Orally Once a day Oct 14, 2016 1 tablet Losartan Potassium [facility] [address]-36 100 MG Orally Once a day 1 tablet BuPROPion HCl (XL) [facility] [address]-97 150 MG Orally Once a day Nov 30, 2014 1 tablet in the morning Results No Known Results Summary Purpose eClinicalWorks Submission
--- OUTSIDE RECORDS SUMMARY | 2017-01-05 03:34 | XMS REPORT | Continuity of Care Document ---
Author Author Yasmine [facility] Address Unknown Phone Unavailable Care Team Providers Care Nurses Director Name Role Phone Robert Zavala PP Unavailable Payers Payer name Insurance type Covered alliance party ID Authorization(s) Unknown Problems Condition Effective Dates (start - stop) Clinical Status Abdominal pain, right upper quadrant - *Resolved Other abnormal blood chemistry - *Chronic Hypertension, Benign - *Chronic COPD - *Chronic Obesity - *Chronic Insomnia, Other - *Chronic Gout, unspecified - *Chronic Osteoarthrosis, generalized, involving unspecified site - * Chronic Hypertension, Benign - *Controlled COPD - *Controlled Chronic kidney disease, Stage II (mild) - Mild Other and unspecified hyperlipidemia - *Controlled Migraine - *Controlled Depression - *Controlled Headache - *Acute Hypertension, Benign - *Chronic Other abnormal blood chemistry - Improved COPD - *Controlled Sleep Apnea - *Controlled CAD, Unspecified - *Controlled Obesity - *Chronic Depression - *Controlled Diabetes Mellitus Type 2, Uncomplicated - *Controlled [...] Dosage Effective Dates (start - stop) Status Ambien 10 mg tablet take 1/2 - 1 Tablet (5MG) by oral route every night at bedtime as needed for sleep 5 MG - Active tramadol 50 mg tablet take 1 - 2 Tablet (50MG) by Oral route every 8 hours as needed 50 MG - Active sumatriptan 100 mg tablet take 1 tablet (100MG) by oral route at start of migraine. May take 1 po again in 2 hrs prn. 100 MG - Active allopurinol 100 mg tablet 1 po qd - Active [place] 5 mg-325 mg tablet take 1 - 2 Tablet by oral route every 8 hours as needed for pain 0 - Active Celexa 20 mg tablet Take 1 [...] HS with 02 2 L - Active Celexa 40 mg tablet Increase to 1 1/2 tabs po qd. - Active Coreg 25 mg tablet take 1 tablet (25MG) by oral route 2 times every day with food 25 MG - Active Proventil HFA 90 mcg/actuation aerosol inhaler inhale 2 puff by inhalation route every 6 hours as needed 0 - Active atorvastatin 80 mg tablet take 1 tablet (80MG) by oral route every day 80 MG - Active buspirone 15 mg tablet take 1 tablet (15MG) by oral route 2 times every day 15 MG - Active Celexa 20 mg tablet Take 1 1/2 tabs po qd. 20 MG - Active losartan 50 mg tablet 1 po bid 50 MG - Active Victoza 3-Billy 0.6 mg/0.1 mL (18 mg/3 mL) subcutaneous pen injector inject 0.3 milliliter (1.8MG) by subcutaneous route every day 1.8 MG - Active Diflucan 200 mg tablet take 1 tablet (200MG) by oral route every day as needed 200 MG - Active Immunizations Vaccine Date Status Comments flu (split) (3 yrs or older) completed - Completed reason: public agency Results Test Name Date and Time Measure Units Reference Range Abnormal Flag Comments Unknown Vital Signs Date / Time: Height Weight Pulse Rate Blood Pressure Temperature /10:46:00 62.00 in 281.00 lbs 144/84 mm[Hg] 96.4 F Procedures Procedure Date Unknown Encounters Encounter Location Date Patient Visit [facility] Patient Visit [facility] Patient Visit [facility] Patient Visit [facility] Patient Visit [facility] Patient Visit [facility] Patient Visit [facility] Patient Visit [facility] Patient Visit [facility] Patient Visit [facility] Patient Visit [facility] Patient Visit [facility] Patient Visit [facility] Patient Visit [facility] Patient Visit [facility] Patient Visit [facility] Patient Visit [facility] Patient Visit [facility] Patient Visit [facility] Patient Visit [facility] Advance Directives Directive Effective Date Unknown
--- OUTSIDE RECORDS SUMMARY | 2017-01-05 03:34 | XMS REPORT ---
Author Ingrid Rivera [facility] eClinicalWorks Address Unknown Phone Unavailable Care Team Providers Care Aquaculture Worker Name Role Phone Ingrid Rendon Unavailable Allergies, Adverse Reactions, Alerts Substance Reaction Event Type Codeine Phosphate vomiting, stomach upset Drug Allergy Problems Problem Type Condition Code Onset Dates Condition Status Assessment Sprain of ligaments of lumbar spine, initial encounter S33.5XXA Active Assessment Chronic kidney disease, stage 3 (moderate) N18.3 Active Assessment Low back pain M54.5 Active Assessment encounter for immunization z23 Active Problem Chronic kidney disease, stage 3 (moderate) N18.3 Active Problem Chronic kidney disease, Stage III (moderate) 585.3 Active Problem Essential (primary) hypertension I10 Active Problem Depressive disorder, not elsewhere classified 311 Active Assessment Essential (primary) hypertension I10 Active Problem Congestive heart failure, unspecified 428.0 Active Problem Essential hypertension, benign 401.1 Active Medications Medication Code System Code Instructions Start Date End Date Status Dosage Furosemide [facility] [address]-80 40 MG Orally Once a day 1 tablet Allopurinol [facility] [address]-20 100 MG Orally Once a day 1 tablet Losartan Potassium [facility] [address]-37 100 MG Orally Once a day 1 tablet Potassium Citrate NDC 0 not defined Calcitriol [facility] [address]-34 0.25 MCG Orally Once a day 1 capsule Tramadol HCl [facility] [address]-78 50 MG Orally TID as needed Oct 06, 2015 Dec 05, 2015 1 tablet as needed Lidoderm [facility] [address]-83 5 % Externally Once a day. 12 h on and 12 h off before applying new Rx Oct 06, 2015 Dec 05, 2015 1 patch to intact skin remove after 12 hours Citalopram Hydrobromide [facility] [address]-84 40 MG Orally Once a day 1 tablet Atorvastatin Calcium [facility] [address]-25 80 MG Orally Once a day 1 tablet BusPIRone HCl [facility] [address]-35 15 MG Orally Twice a day 1 tablet BuPROPion HCl (XL) [facility] [address]-35 150 MG Orally Once a day Nov 30, 2014 1 tablet in the morning Cyclobenzaprine HCl [facility] [address]-52 10 MG Orally Three times a day OctDec 05, 2015 1 tablet as needed Zolpidem Tartrate [facility] [address]-47 10 MG Orally Once a day prn 1/ 2-1 tablet Vitamin D [facility] [address]343-[address]60 400 UNIT Orally not defined Carvedilol [facility] [address]-41 25 MG Orally Twice a day 1 tablet with food Procedures Procedure Coding System Code Date OFFICE VISIT, EST-LOW COMPLEXITY (15 MIN.) CPT-4 19154 Oct 06, 2015 [facility] visit Established Patient CPT-4 G0467 Oct 06, 2015 Vital Signs Date/Time: Oct 06, 2015 Height 62 in Weight 291.12 lbs Temperature 97.9 F Blood Pressure Diastolic 87 mm Hg Blood Pressure Systolic 164 mm Hg Cardiac Monitoring Heart Rate 78 /min BMI 53.24 Index Respiratory Rate 16 /min Results No Known Results Summary Purpose eClinicalWorks Submission
--- OUTSIDE RECORDS SUMMARY | 2017-01-05 03:34 | XMS REPORT ---
Author Author Ingrid Rendon [facility] eClinicalWorks Address Unknown Phone Unavailable Care Team Providers Care Fashion Intern Name Role Phone Ingrid Rendon Unavailable Allergies [...] Date End Date Status Dosage Losartan Potassium [facility] [address]-88 100 MG Orally Once a day 1 tablet Results No Known Results Summary Purpose eClinicalWorks Submission
--- OUTSIDE RECORDS SUMMARY | 2017-01-05 03:34 | XMS REPORT ---
Author Author Geronimo Wan Organization eClinicalWorks Address Unknown Phone Unavailable Care Team Providers Care Nut And Bolt Assembler Name Role Phone Geronimo Wan CP Unavailable Allergies, Adverse Reactions, Alerts Substance Reaction Event Type Codeine Phosphate vomiting, stomach upset Drug Allergy Problems Problem Type Condition Code Onset Dates Condition Status Assessment Acute bronchitis due to other specified organisms J20.8 Active Assessment Other specified respiratory disorders J98.8 Active Assessment Unspecified asthma, uncomplicated J45.909 Active Assessment Bronchopneumonia, unspecified organism J18.0 Active Problem Essential (primary) hypertension I10 Active [...] Date End Date Status Dosage Potassium Citrate NDC 0 not defined Carvedilol [facility] [address]-69 25 MG Orally Twice a day 1 tablet with food PredniSONE [facility] [address]-51 10 MG Orally as directed. Jul 06, 2016 4 tabs daily X3 days then 2 tabs daily X3 days then 1 tab daily X3 days then stop. BuPROPion HCl (XL) [facility] [address]-34 150 MG Orally Once a day Nov 30, 2014 1 tablet in the morning Furosemide [facility] [address]-70 40 MG Orally Once a day 1 tablet Vitamin D [facility] [address] 400 UNIT Orally not defined Levaquin [facility] [address]-23 750 MG Orally every 24 hrs Jul 06, 2016 1 tablet Tessalon Perles [facility] [address]-94 100 MG Orally every 8 hours Jul 06, 2016 1 to 2 capsules as needed every 8 hours for cough/congestion Allopurinol [facility] [address]-38 100 MG Orally Once a day Oct 14, 2016 1 tablet Losartan Potassium [facility] [address]-30 100 MG Orally Once a day 1 tablet Zolpidem Tartrate [facility] [address]-18 10 MG Orally Once a day prn 1/ 2-1 tablet Calcitriol [facility] [address]-83 0.25 MCG Orally Once a day 1 capsule BusPIRone HCl [facility] [address]-52 15 MG Orally Twice a day 1 tablet Hydrocodone-Acetaminophen [facility] [address]-31 7.5-325 MG Orally every 4-6 hrs 1 tablet as needed Citalopram Hydrobromide [facility] [address]-24 40 MG Orally Once a day 1 tablet Atorvastatin Calcium [facility] [address]-10 80 MG Orally Once a day 1 tablet ProAir HFA [facility] [address]-48 108 (90 Base) MCG/ACT Inhalation every 4-6 hrs May 28, 2016 2 puffs as needed Procedures Procedure Coding System Code Date [facility] visit Established Patient CPT-4 G0467 Jul 06, 2016 OFFICE VISIT, EST-LOW COMPLEXITY (15 MIN.) CPT-4 07179 Jul 06, 2016 RAPID INFLUENZA, IN HOUSE CPT-4 28696 Jul 06, 2016 Vital Signs Date/Time: Jul 06, 2016 Temperature 98.0 F Height 62 in Weight 281.0 lbs Blood Pressure Diastolic 86 mm Hg Blood Pressure Systolic 142 mm Hg Cardiac Monitoring Heart Rate 91 /min BMI 51.39 Index Oximetry 91 % Respiratory Rate 18 /min Results No Known Results Summary Purpose eClinicalWorks Submission
--- OUTSIDE RECORDS SUMMARY | 2017-01-05 03:34 | XMS REPORT | Continuity of Care Document ---
Author Author Wong [facility] Organization [facility] Address Unknown Phone Unavailable Support Name Relationship Address Phone DINORA ROBERTS MD Caregiver [address] [place] [phone] FRANK GUTIERREZ MD Caregiver [address] [place] [phone] TERRELL CALVO Next Of Kin [address] [place] [id number] Insurance Providers Payer Name Policy Number Subscriber Name Relationship Medicare [id number] Eva Calvo 18 Self Other A Insurance [id number] Eva Calvo 18 Self Advance Directives Directive Response Recorded Date/Time Advanced Directives Type None 05/12/14 8:13am Problems Medical Problems Problem Onset Date Status Headache Unknown Active Influenza-like illness Unknown Active RUQ Abdominal Pain Unknown Active Stone in Distal Common Bile Post Cholecystectomy Unknown Active Fall Unknown Active Minor head injury Unknown Active Knee contusion Unknown Active Medications Medication Dose Route Sig Days/Qty Instructions Order Date Discontinued Date Status Lisinopril 5 Mg PO DAILY 11/15/11 10/11/12 Discontinued Furosemide 20 Mg PO TWICE A DAY 11/15/11 10/11/12 Discontinued Simvastatin 80 Mg PO BEDTIME 11/15/11 10/11/12 Discontinued Buspirone Hcl 10 Mg PO DAILY 11/15/11 10/11/12 Discontinued Allopurinol 100 Mg PO DAILY 11/15/11 11/08/13 Discontinued Colchicine 0.6 Mg PO NEEDED 10/11/12 11/08/13 Discontinued Sumatriptan Succinate 100 Mg PO NEEDED 10/11/12 11/08/13 Discontinued Carvedilol 25 Mg PO TWICE A DAY 10/11/12 Active Losartan Potassium 50 Mg PO DAILY 10/11/12 Active Diphenhydramine Hcl 50 Mg PO NEEDED 10/11/12 10/11/12 Discontinued Citalopram Hydrobromide 40 Mg PO DAILY 10/11/12 Active Potassium Chloride 20 Meq PO TWICE A DAY 10/11/12 11/08/13 Discontinued Sennosides 8.6 Mg PO NEEDED 10/11/12 11/08/13 Discontinued Buspirone Hcl 15 Mg PO TWICE A DAY 10/11/12 Active Furosemide 40 Mg PO TWICE A DAY 10/11/12 11/08/13 Discontinued Atorvastatin Calcium 80 Mg PO DAILY 10/11/12 Active Budesonide 0.5 Mg IH NEEDED 10/11/12 11/08/13 Discontinued Formoterol Fumarate 20 Mcg IH NEEDED 10/11/12 11/08/13 Discontinued Zolpidem Tartrate 0.5-1 Mg PO NEEDED 05/12/14 Active Tramadol Hcl 1-2 Mg PO PRN EVERY 8HR 05/12/14 Active Social History Social History Problem Response Recorded Date/Time Smoking Status Never smoker 05/12/2014 8:30am Hx Substance Use No 05/12/2014 8:30am Hx Alcohol Use Y MIXED DRINKS OCCASSIONALLY 05/12/2014 8:30am Query Response Start Date Stop Date Smoking Status Never smoker Hospital Discharge Instructions No hospital discharge instructions. Plan of Care No plan of care. Functional Status Query Response Date Recorded Physical Hygiene Self May 12, 2014 8:30am Dressing Self May 12, 2014 8:30am Ambulation Self May 12, 2014 8:30am Diet Self May 12, 2014 8:30am Mental Status Alert Oriented May 12, 2014 11:32am Physical Hygiene Self May 12, 2014 8:30am Dressing Self May 12, 2014 8:30am Ambulation Self May 12, 2014 8:30am Diet Self May 12, 2014 8:30am Allergies, Adverse Reactions, Alerts Allergen Type Severity Reaction Status Last Updated Codeine Adverse Reaction Unknown Active 05/12/14 Immunizations Name Given Type Hx Influenza Vaccination Yes Historical Hx Pneumococcal Vaccination Yes Historical Hx Tetanus, Diptheria, Pertussis N/A SKIN INTACT Historical Hx Influenza Vaccination Yes Historical Hx Tetanus, Diptheria, Pertussis N/A SKIN INTACT Historical Vital Signs Acute Vital Signs Vital Response Date/Time Temperature (Fahrenheit) 97.2 deg F (96.8 - 99.1) Temperature (Calculated Celsius) 36.43324 degrees C (36.0 - 37.3) Pulse Rate (adult) 66 bpm (60 - 100) Respiratory Rate 20 breaths/min (10 - 20) O2 Sat by Pulse Oximetry 92 % (90 - 100) Blood Pressure 148/72 mm Hg Height 5 ft 2 in Weight 281 lb Body Mass Index 51.0 kg/m^2 Results Test Source Date Result Interp. Ref. Range Comments Activated Partial Thromboplast Time October 11, 2012 12:39pm 33.1 SEC N 24-36 Alanine Aminotransferase (ALT/SGPT) November 22, 2013 10:00pm 447 U/L H 9 -52 Albumin November 22, 2013 10:00pm 4.2 G/DL N 3.5-5.0 Albumin/Globulin Ratio November 22, 2013 10:00pm 1.4 RATIO N 1.1-2.2 Alkaline Phosphatase November 22, 2013 10:00pm 271 U/L H 38-126 Amylase Level November 22, 2013 10:00pm 84 U/L N 30-110 Anion Gap November 22, 2013 10:00pm 12 MEQ/L N 5-15 Aspartate Amino Transf (AST/SGOT) November 22, 2013 10:00pm 625 U/L H 14- 36 BUN/Creatinine Ratio November 22, 2013 10:00pm 21 RATIO N 6-26 Basophils # (Auto) November 22, 2013 10:00pm 0.1 T/MM3 N 0-0.2 Basophils (%) (Auto) November 22, 2013 10:00pm 1.0 % N 0-2 Blood Urea Nitrogen November 22, 2013 10:00pm 19.0 MG/DL H 7-17 Calcium Level November 22, 2013 10:00pm 9.5 MG/DL N 8.4-10.2 Calculated Osmolality November 22, 2013 10:00pm 275 MOSM/KG N 261-280 Carbon Dioxide Level November 22, 2013 10:00pm 23 MEQ/L N 22-30 Chloride Level November 22, 2013 10:00pm 106 MEQ/L N 98-107 Cholesterol Level October 12, 2012 6:30am 187 MG/DL N 132-199 Cholesterol/HDL Ratio October 12, 2012 6:30am 3.8 RATIO N 0-4.0 Conjugated Bilirubin October 11, 2012 12:39pm 0.00 MG/DL N 0.00-0.30 Creatine Kinase MB October 12, 2012 6:30am 0.4 NG/ML N 0-3.4 Creatinine November 22, 2013 10:00pm 0.9 MG/DL N 0.7-1.2 D-Dimer November 15, 2011 7:26pm < 100 NG/ML 0-400 <400 NG/ML= PRESUMPTIVE NEGATIVE FOR PE OR DVT>400 NG/ML=ADDITIONAL EVALUATION FOR PE OR DVT RECOMMENDED Eosinophils # (Auto) November 22, 2013 10:00pm 0.1 T/MM3 N 0-0.5 Eosinophils (%) (Auto) November 22, 2013 10:00pm 1.7 % N 0-4 Free Thyroxine October 11, 2012 12:39pm 0.80 NG/DL N 0.78-2.19 COMMENT use blood in Lab Globulin November 22, 2013 10:00pm 2.9 G/DL N 2.4-3.6 Glucose Level November 22, 2013 10:00pm 132 MG/DL H 65-110 Hematocrit November 22, 2013 10:00pm 38.3 % N 36-46 Hemoglobin November 22, 2013 10:00pm 12.4 GM/DL N 12-16 Influenza Type A Antigen November 08, 2013 1:40pm Negative - Negative for Flu A protein antigen. Assay sensitivity isbetween 65-83%. A negative result does not exclude influenza virus infection. "Influenza FA" may be ordered if clinical presentation warrants confirmatory testing. Influenza Type B Antigen November 08, 2013 1:40pm Negative - Negative for Flu B protein antigen. Assay sensitivity isbetween 65-83%. A negative result does not exclude influenza virus infection. "Influenza FA" may be ordered if clinical presentation warrants confirmatory testing. LDL Cholesterol, Calculated October 12, 2012 6:30am 138 N 66-159 Lipase November 22, 2013 10:00pm 151 U/L N 23-300 Lymphocytes # (Auto) November 22, 2013 10:00pm 1.2 T/MM3 N 1-4.8 Lymphocytes (%) (Auto) November 22, 2013 10:00pm 21.3 % L 23-45 Magnesium Level October 11, 2012 12:39pm 2.0 MG/DL N 1.6-2.3 COMMENT use blood in Lab Mean Corpuscular Hemoglobin November 22, 2013 10:00pm 28.1 UUG N 26-34 Mean Corpuscular Hemoglobin Concent November 22, 2013 10:00pm 32.4 GM/DL N 31-37 Mean Corpuscular Volume November 22, 2013 10:00pm 86.7 UM3 N 80-100 Mean Platelet Volume November 22, 2013 10:00pm 11.3 UM3 N 9.4-12.4 Monocytes # (Auto) November 22, 2013 10:00pm 0.4 T/MM3 N 0-0.8 Monocytes (%) (Auto) November 22, 2013 10:00pm 7.4 % N 0-9.0 Neutrophils # (Auto) November 22, 2013 10:00pm 4.0 T/MM3 N 1.8-7.7 Neutrophils (%) (Auto) November 22, 2013 10:00pm 68.3 % H 33-66 Platelet Count November 22, 2013 10:00pm 229 T/MM3 N 130-400 Potassium Level November 22, 2013 10:00pm 5.0 MEQ/L N 3.6-5 Prothromb Time International Ratio October 11, 2012 12:39pm 0.95 N 0.86 -1.10 THERAPUTIC RANGE=2.00-3.00 FOR ANTI-THROMBOSIS THERAPUTIC RANGE=2.50- 3.50 FOR IMPLANTED VALVE RDW Standard Deviation November 22, 2013 10:00pm 44.9 FL N 36.9-50.2 Red Blood Count November 22, 2013 10:00pm 4.42 M/MM3 N 4.00-5.20 Sodium Level November 22, 2013 10:00pm 141 MEQ/L N 134-144 Thyroid Stimulating Hormone (TSH) October 11, 2012 12:39pm 2.37 MIU/L N 0.47-4.68 COMMENT use blood in Lab Total Bilirubin November 22, 2013 10:00pm 2.50 MG/DL H 0.20-1.30 Total Creatine Kinase October 12, 2012 6:30am 36 U/L N 30-135 Total Protein November 22, 2013 10:00pm 7.1 G/DL N 6.3-8.2 Triglycerides Level October 12, 2012 6:30am 158 MG/DL H 35-135 Troponin I October 12, 2012 6:30am < 0.012 ng/ml 0-0.12 Unconjugated Bilirubin October 11, 2012 12:39pm 0.40 MG/DL N 0.00-1.10 Urine Bilirubin November 22, 2013 10:30pm Negative - Has specimen been collected/obtained? Y Urine Blood November 22, 2013 10:30pm Negative - Has specimen been collected/obtained? Y Urine Collection Type November 22, 2013 10:30pm Voided-not cc-midstr - Has specimen been collected/obtained? Y Urine Color November 22, 2013 10:30pm Yellow - Has specimen been collected/obtained? Y Urine Glucose (UA) November 22, 2013 10:30pm Negative - Has specimen been collected/obtained? Y Urine Ketones November 22, 2013 10:30pm Negative - Has specimen been collected/obtained? Y Urine Leukocyte Esterase November 22, 2013 10:30pm Negative - Has specimen been collected/obtained? Y Urine Microalbumin March 04, 2012 11:15am < 5.0 MG/L 0-17 Urine Microalbumin/Creatinine Ratio March 04, 2012 11:15am Test not performedMICROALBUMIN CREAT RATIO UNABLE TO CALCULATE 0-30 Urine Nitrite November 22, 2013 10:30pm Negative - Has specimen been collected/obtained? Y Urine Protein November 22, 2013 10:30pm Trace H - Has specimen been collected/obtained? Y Urine Random Creatinine March 04, 2012 11:15am 102.2 MG/DL - Urine Specific [place] November 22, 2013 10:30pm 1.020 - Has specimen been collected/obtained? Y Urine Turbidity November 22, 2013 10:30pm Clear - Has specimen been collected/obtained? Y Urine Urobilinogen November 22, 2013 10:30pm 0.2 EU/DL - Has specimen been collected/obtained? Y Urine pH November 22, 2013 10:30pm 7.0 - Has specimen been collected/ obtained? Y VLDL Cholesterol October 12, 2012 6:30am 31.6 MG/DL H 0-28 White Blood Count November 22, 2013 10:00pm 5.8 T/MM3 N 4.5-11.0 Urinalysis Comment November 22, 2013 10:30pm Microscopic not ind. - Has specimen been collected/obtained? Y Lab Scanned Report March 04, 2012 9:45pm LAB TEST FORM REQUEST [id number] - HDL Cholesterol Direct October 12, 2012 6:30am 49 MG/DL N 40-60 Glomerular Filtration Rate Calc November 22, 2013 10:00pm 63 - Immature Granulocyte # (Auto) November 22, 2013 10:00pm 0.02 T/MM3 N 0.00 -0.03 Immature Granulocyte % (Auto) November 22, 2013 10:00pm 0.3 % N 0.0-0.5 FC-Wqd-Y-Type Natriuretic Peptide October 11, 2012 12:39pm 73 PG/ML N 0 -175 Rule in cut points: <50 years old=450; 50-75 years old=900; >75 years old=1800; When utilizing ProBNP rule-in cut points, adjustment for impaired renal function is typically not required. Urine Microscopic Not Indicated November 15, 2011 7:45pm Not indicated - Has specimen been collected/obtained? Y Procedures No known history of procedures. Encounters Encounter Location Date/Time Departed Emergency Room [facility] 05/12/14 8:10am Recent Diagnosis
--- OUTSIDE RECORDS SUMMARY | 2017-01-05 03:34 | XMS REPORT ---
Author Author Jose Lagos [facility] eClinicalWorks Address Unknown Phone Unavailable Care Team Providers Care Capping Machine Operator Name Role Phone Jose Lagos CP Unavailable [...] disorder, not elsewhere classified 311 Active Assessment Dental caries, unspecified K02.9 Active Problem Congestive heart failure, unspecified 428.0 Active Problem Essential hypertension, benign 401.1 Active Medications Medication Code System Code Instructions Start Date End Date Status Dosage Furosemide [facility] [address]-17 40 MG Orally Once a day 1 tablet BusPIRone HCl [facility] [address]-77 15 MG Orally Twice a day 1 tablet BuPROPion HCl (XL) [facility] [address]-47 150 MG Orally Once a day Nov 30, 2014 1 tablet in the morning Vitamin D [facility] [address] 400 UNIT Orally not defined Losartan Potassium [facility] [address]-88 100 MG Orally Once a day 1 tablet Allopurinol [facility] [address]-70 100 MG Orally Once a day Oct 14, 2016 1 tablet Atorvastatin Calcium [facility] [address]-60 80 MG Orally Once a day 1 tablet Potassium Citrate [place] 0 not defined Calcitriol [facility] [address]-23 0.25 MCG Orally Once a day 1 capsule Zolpidem Tartrate [facility] [address]-70 10 MG Orally Once a day prn 1/ 2-1 tablet Carvedilol [facility] [address]-92 25 MG Orally Twice a day 1 tablet with food Citalopram Hydrobromide [facility] [address]-49 40 MG Orally Once a day 1 tablet ProAir HFA [facility] [address]-80 108 (90 Base) MCG/ACT Inhalation every 4-6 hrs May 28, 2016 2 puffs as needed Hydrocodone-Acetaminophen [facility] [address]-88 7.5-325 MG Orally every 4-6 hrs 1 tablet as needed Procedures Procedure Coding System Code Date EXTRAC ERUPTED TOOTH/EXPOSED ROOT CPT-4 D7140 2016 Results No Known Results Summary Purpose eClinicalWorks Submission
--- OUTSIDE RECORDS SUMMARY | 2017-01-05 03:35 | XMS REPORT ---
Author Ingrid Rivera eClinicalWorks Address Unknown Phone Unavailable Care Team Providers Care Music Orchestrator Name Role Phone Ingrid Rendon Unavailable Allergies [...] Start Date End Date Status Dosage Carvedilol [facility] [address]-83 25 MG Orally Twice a day 1 tablet with food Atorvastatin Calcium [facility] [address]-28 80 MG Orally Once a day 1 tablet Levaquin [facility] [address]-36 750 MG Orally every 24 hrs Jul 06, 2016 1 tablet Allopurinol [facility] [address]-36 100 MG Orally Once a day Oct 14, 2016 1 tablet Furosemide [facility] [address]-07 40 MG Orally Once a day 1 tablet Tessalon Perles [facility] [address]-62 100 MG Orally every 8 hours Jul 06, 2016 1 to 2 capsules as needed every 8 hours for cough/congestion Citalopram Hydrobromide [facility] [address]-66 40 MG Orally Once a day 1 tablet PredniSONE [facility] [address]-49 10 MG Orally as directed. Jul 06, 2016 4 tabs daily X3 days then 2 tabs daily X3 days then 1 tab daily X3 days then stop. BuPROPion HCl (XL) [facility] [address]-39 150 MG Orally Once a day Nov 30, 2014 1 tablet in the morning Hydrocodone-Acetaminophen [facility] [address]-44 7.5-325 MG Orally every 4-6 hrs 1 tablet as needed Calcitriol [facility] [address]-49 0.25 MCG Orally Once a day 1 capsule Zolpidem Tartrate [facility] [address]-38 10 MG Orally Once a day prn 1/ 2-1 tablet BusPIRone HCl [facility] [address]-46 15 MG Orally Twice a day 1 tablet Losartan Potassium [facility] [address]-59 100 MG Orally Once a day 1 tablet Vitamin D [facility] [address] 400 UNIT Orally not defined Potassium Citrate ND 0 not defined ProAir HFA [facility] [address]-19 108 (90 Base) MCG/ACT Inhalation every 4-6 hrs May 28, 2016 2 puffs as needed Procedures Procedure Coding System Code Date IH CMP CPT-4 88347 Jul 30, 2016 COMPLETE CBC W/AUTO DIFF WBC CPT-4 57166 Jul 30, 2016 Results No Known Results Summary Purpose eClinicalWorks Submission
--- OUTSIDE RECORDS SUMMARY | 2017-01-05 03:35 | XMS REPORT ---
Author Author Ingrid Rendon [facility] eClinicalWorks Address Unknown Phone Unavailable Care Team Providers Care Sed Special Education Teacher Name Role Phone Ingrid Rendon Unavailable Allergies No Known Allergies Problems Problem Type Condition ICD-9 Code Onset Dates Condition Status Problem Congestive heart failure, unspecified 428.0 Active Problem Essential hypertension, benign 401.1 Active Problem Chronic kidney disease, Stage III (moderate) 585.3 Active Problem Depressive disorder, not elsewhere classified 311 Active Assessment Depressive disorder, not elsewhere classified 311 Active Medications Medication Code System Code Instructions Start Date End Date Status Dosage BuPROPion HCl (XL) [facility] [address]-39 150 MG Orally Once a day Nov 30, 2014 1 tablet in the morning Results No Known Results Summary Purpose eClinicalWorks Submission
--- OUTSIDE RECORDS SUMMARY | 2017-01-05 03:35 | XMS REPORT ---
Author Author Ingrid Rendon [facility] eClinicalWorks Address Unknown Phone Unavailable Care Team Providers Care Packaging Engineer Name Role Phone Ingrid Rendon Unavailable Allergies [...] Date End Date Status Dosage Citalopram Hydrobromide [facility] [address]-02 40 MG Orally Once a day 1 1/2 tablet Losartan Potassium [facility] [address]-38 100 MG Orally Once a day 1 tablet Results No Known Results Summary Purpose eClinicalWorks Submission
--- OUTSIDE RECORDS SUMMARY | 2017-01-05 03:36 | XMS REPORT | Continuity of Care Document ---
Author Author [facility] Organization [facility] Address Unknown Phone Unavailable Support Name Relationship Address Phone GERMÁN CLEANING MD Caregiver [facility] [address] [place] [address] Unavailable OSCAR COLON APRN Caregiver [address], [place] [phone] TERRELL CALVO Next Of Kin [address] [place], [place] [id number] Insurance Providers Payer Name Policy Number Subscriber Name Relationship Medicare [id number] Eva Calvo 18 Self Other A Insurance [id number] Eva Calvo 18 Self Advance Directives Directive Response Recorded Date/Time Advanced Directives Type None 05/12/14 8:13am Problems Medical Problems Problem Onset Date Status Headache Unknown Active Influenza-like illness Unknown Active RUQ Abdominal Pain Unknown Active Stone in Distal Common Bile Post Cholecystectomy Unknown Active Fall Unknown Active Minor head injury Unknown Active Knee contusion Unknown Active Minor head injury Unknown Active Contusion of right knee Unknown Active Medications Medication Dose Route Sig [...] Mg PO PRN EVERY 8HR 05/12/14 Active Allopurinol Unknown Dose PO DAILY 02/02/15 Active Bupropion HCl 30 Qty 02/02/15 Active Furosemide 30 Qty 02/02/15 Active Potassium Chloride 30 Qty 02/02/15 Active Social History Social History Problem Response Recorded Date/Time Hx Substance Use No 02/01/2015 10:56pm Hx Alcohol Use Y OCCASSIONALLY 02/01/2015 10:56pm Query Response Start Date Stop Date Smoking Status Never smoker Hospital Discharge Instructions No hospital discharge instructions. Plan of Care No plan of care. Functional Status Query Response Date Recorded Physical Hygiene Self February 01, 2015 10:56pm Disabilities None February 01, 2015 10:56pm Devices Used None February 01, 2015 10:56pm Dressing Self February 01, 2015 10:56pm Ambulation Self May 12, 2014 8:30am Diet Self February 01, 2015 10:56pm Mental Status Alert Oriented May 12, 2014 11:32am Disabilities None February 01, 2015 10:56pm Devices Used None February 01, 2015 10:56pm Physical Hygiene Self February 01, 2015 10:56pm Dressing Self February 01, 2015 10:56pm Ambulation Self May 12, 2014 8:30am Diet Self February 01, 2015 10:56pm Allergies, Adverse Reactions, Alerts Allergen Type Severity Reaction Status Last Updated Codeine Adverse Reaction Unknown Active 02/01/15 Immunizations Name Given Type Hx Influenza Vaccination Yes Historical Hx Pneumococcal Vaccination Yes Historical Hx Tetanus, Diptheria, Pertussis N/A SKIN INTACT Historical Hx Influenza Vaccination Yes Historical Hx Tetanus, Diptheria, Pertussis N/A SKIN INTACT Historical Vital Signs Acute Vital Signs Vital Response Date/Time Temperature (Fahrenheit) 97.8 deg F (96.8 - 99.1) Temperature (Calculated Celsius) 36.07007 degrees C (36.0 - 37.3) Pulse Rate (adult) 84 bpm (60 - 100) Respiratory Rate 20 breaths/min (10 - 20) O2 Sat by Pulse Oximetry 93 % (90 - 100) Blood Pressure 120/57 mm Hg Height 5 ft 2 in Weight 266 lb Body Mass Index 48.0 kg/m^2 Results Test Source Date Result Interp. Ref. Range Comments Activated Partial Thromboplast Time October 11, 2012 12:39pm 33.1 SEC N 24-36 Alanine Aminotransferase (ALT/SGPT) February 01, 2015 11:25pm 31 U/L N 9- 52 Albumin February 01, 2015 11:25pm 4.1 G/DL N 3.5-5.0 Albumin/Globulin Ratio February 01, 2015 11:25pm 1.3 RATIO N 1.1-2.2 Alkaline Phosphatase February 01, 2015 11:25pm 104 U/L N 38-126 Amylase Level November 22, 2013 10:00pm 84 U/L N 30-110 Anion Gap February 01, 2015 11:25pm 13 MEQ/L N 5-15 Aspartate Amino Transf (AST/SGOT) February 01, 2015 11:25pm 28 U/L N 14-36 BUN/Creatinine Ratio February 01, 2015 11:25pm 18 RATIO N 6-26 Basophils # (Auto) February 01, 2015 11:25pm 0.1 T/MM3 N 0-0.2 Basophils (%) (Auto) February 01, 2015 11:25pm 0.6 % N 0-2 Blood Urea Nitrogen February 01, 2015 11:25pm 22.0 MG/DL H 7-17 Calcium Level February 01, 2015 11:25pm 9.7 MG/DL N 8.4-10.2 Calculated Osmolality February 01, 2015 11:25pm 286 MOSM/KG H 261-280 Carbon Dioxide Level February 01, 2015 11:25pm 27 MEQ/L N 22-30 Chemistry Specimen Hemolysis February 01, 2015 11:25pm 100 H 0-25 0-25: No Hemolysis.26-70: Slight Hemolysis - can falsely elevate K and Urine Protein. 71-285: Moderate Hemolysis - can falsely elevate K, Troponin I, CA 19-9, PTH, CSF GLucose, and Urine Protein, and can falsely decrease Phenytoin. 286-999: Gross Hemolysis - can falsely elevate K, Troponin I, CA 19-9, PTH, CSF Glucose, and Urine Protine, and can falsely decrease Phenytoin. Recommend specimen recollection. Chloride Level February 01, 2015 11:25pm 107 MEQ/L N 98-107 Cholesterol Level October 12, 2012 6:30am 187 MG/DL N 132-199 Cholesterol/HDL Ratio October 12, 2012 6:30am 3.8 RATIO N 0-4.0 Conjugated Bilirubin October 11, 2012 12:39pm 0.00 MG/DL N 0.00-0.30 Creatine Kinase MB October 12, 2012 6:30am 0.4 NG/ML N 0-3.4 Creatinine February 01, 2015 11:25pm 1.2 MG/DL N 0.7-1.2 D-Dimer November 15, 2011 7:26pm < 100 NG/ML 0-400 <400 NG/ML= PRESUMPTIVE NEGATIVE FOR PE OR DVT>400 NG/ML=ADDITIONAL EVALUATION FOR PE OR DVT RECOMMENDED Eosinophils # (Auto) February 01, 2015 11:25pm 0.2 T/MM3 N 0-0.5 Eosinophils (%) (Auto) February 01, 2015 11:25pm 2.6 % N 0-4 Free Thyroxine October 11, 2012 12:39pm 0.80 NG/DL N 0.78-2.19 COMMENT use blood in Lab Globulin February 01, 2015 11:25pm 3.1 G/DL N 2.4-3.6 Glomerular Filtration Rate Calc February 01, 2015 11:25pm 45 - Glucose Level February 01, 2015 11:25pm 124 MG/DL H 65-110 HDL Cholesterol Direct October 12, 2012 6:30am 49 MG/DL N 40-60 Hematocrit February 01, 2015 11:25pm 40.8 % N 36-46 Hemoglobin February 01, 2015 11:25pm 13.2 GM/DL N 12-16 Icterus Index February 01, 2015 11:25pm < 2 0-7 Immature Granulocyte # (Auto) February 01, 2015 11:25pm 0.02 T/MM3 N 0.00- 0.03 Immature Granulocyte % (Auto) February 01, 2015 11:25pm 0.2 % N 0.0-0.5 Influenza Type A Antigen November 08, 2013 [...] October 12, 2012 6:30am 138 N 66-159 Lab Scanned Report March 04, 2012 9:45pm LAB TEST FORM REQUEST [id number] - Lipase February 01, 2015 11:25pm 56 U/L N 23-300 Lymphocytes # (Auto) February 01, 2015 11:25pm 1.6 T/MM3 N 1-4.8 Lymphocytes (%) (Auto) February 01, 2015 11:25pm 18.2 % L 23-45 Magnesium Level October 11, 2012 12:39pm 2.0 MG/DL N 1.6-2.3 COMMENT use blood in Lab Mean Corpuscular Hemoglobin February 01, 2015 11:25pm 27.8 UUG N 26-34 Mean Corpuscular Hemoglobin Concent February 01, 2015 11:25pm 32.4 GM/DL N 31-37 Mean Corpuscular Volume February 01, 2015 11:25pm 86.1 UM3 N 80-100 Mean Platelet Volume February 01, 2015 11:25pm 11.2 UM3 N 9.4-12.4 Monocytes # (Auto) February 01, 2015 11:25pm 0.6 T/MM3 N 0-0.8 Monocytes (%) (Auto) February 01, 2015 11:25pm 6.5 % N 0-9.0 NZ-Nre-N-Type Natriuretic Peptide October 11, 2012 12:39pm 73 PG/ML N 0 -175 Rule in cut points: <50 years old=450; 50-75 years old=900; >75 years old=1800; When utilizing ProBNP rule-in cut points, adjustment for impaired renal function is typically not required. Neutrophils # (Auto) February 01, 2015 11:25pm 6.1 T/MM3 N 1.8-7.7 Neutrophils (%) (Auto) February 01, 2015 11:25pm 71.9 % H 33-66 Platelet Count February 01, 2015 11:25pm 250 T/MM3 N 130-400 Potassium Level February 01, 2015 11:25pm 4.8 MEQ/L N 3.6-5 Prothromb Time International Ratio October 11, 2012 12:39pm 0.95 N 0.86 -1.10 THERAPUTIC RANGE=2.00-3.00 FOR ANTI-THROMBOSIS THERAPUTIC RANGE=2.50- 3.50 FOR IMPLANTED VALVE RDW Standard Deviation February 01, 2015 11:25pm 46.6 FL N 36.9-50.2 Red Blood Count February 01, 2015 11:25pm 4.74 M/MM3 N 4.00-5.20 Sodium Level February 01, 2015 11:25pm 147 MEQ/L H 134-144 Thyroid Stimulating Hormone (TSH) October 11, 2012 12:39pm 2.37 MIU/L N 0.47-4.68 COMMENT use blood in Lab Total Bilirubin February 01, 2015 11:25pm 0.80 MG/DL N 0.20-1.30 Total Creatine Kinase October 12, 2012 6:30am 36 U/L N 30-135 Total Protein February 01, 2015 11:25pm 7.2 G/DL N 6.3-8.2 Triglycerides Level October 12, 2012 6:30am 158 MG/DL H 35-135 Troponin I October 12, 2012 6:30am < 0.012 ng/ml 0-0.12 Turbidity February 01, 2015 11:25pm < 20 0-20 Unconjugated Bilirubin October 11, 2012 12:39pm 0.40 MG/DL N 0.00-1.10 Urinalysis Comment February 01, 2015 11:04pm Microscopic not ind. - Has specimen been collected/obtained? Y Urine Bilirubin February 01, 2015 11:04pm Negative - Has specimen been collected/obtained? Y Urine Blood February 01, 2015 11:04pm Negative - Has specimen been collected/obtained? Y Urine Collection Type February 01, 2015 11:04pm Cleancatch-midstream - Has specimen been collected/obtained? Y Urine Color February 01, 2015 11:04pm Yellow - Has specimen been collected/obtained? Y Urine Glucose (UA) February 01, 2015 11:04pm Negative - Has specimen been collected/obtained? Y Urine Ketones February 01, 2015 11:04pm Negative - Has specimen been collected/obtained? Y Urine Leukocyte Esterase February 01, 2015 11:04pm Negative - Has specimen been collected/obtained? Y Urine Microalbumin March 04, 2012 11:15am < 5.0 MG/L 0-17 Urine Microalbumin/Creatinine Ratio March 04, 2012 11:15am Test not performedMICROALBUMIN CREAT RATIO UNABLE TO CALCULATE 0-30 Urine Microscopic Not Indicated November 15, 2011 7:45pm Not indicated - Has specimen been collected/obtained? Y Urine Nitrite February 01, 2015 11:04pm Negative - Has specimen been collected/obtained? Y Urine Protein February 01, 2015 11:04pm Negative - Has specimen been collected/obtained? Y Urine Random Creatinine March 04, 2012 11:15am 102.2 MG/DL - Urine Specific [place] February 01, 2015 11:04pm 1.025 - Has specimen been collected/obtained? Y Urine Turbidity February 01, 2015 11:04pm Clear - Has specimen been collected/obtained? Y Urine Urobilinogen February 01, 2015 11:04pm 0.2 EU/DL - Has specimen been collected/obtained? Y Urine pH February 01, 2015 11:04pm 5.5 - Has specimen been collected/ obtained? Y VLDL Cholesterol October 12, 2012 6:30am 31.6 MG/DL H 0-28 White Blood Count February 01, 2015 11:25pm 8.5 T/MM3 N 4.5-11.0 Name: EVA CALVO Unit #: [id number] : 1950 Sex: F [facility] [place] [facility]: [facility] DOS: 12/31/14 Signed Report #: [id number] DIAGNOSTIC IMAGING REPORT TYPE OF EXAM: US RENAL Dictated By: ANDREAS BENAVIDES MD Indication: ITS.REASON: 585.3 CKD STAGE 3 US RENAL: Comparison: CT abdomen and pelvis dated November 22, 2013 Technique: Grayscale and color Doppler sonographic imaging of both kidneys was performed. FINDINGS: Both kidneys are present with normal echogenicity. Normal cortical thickness on the right. There is mild to moderate cortical thinning on the left. No evidence for collecting system dilatation, contour deforming mass, nephrolithiasis, or abnormal perinephric fluid collection. The right kidney measures 10.1 cm in length, and the left kidney measures 9.1 cm in length. IMPRESSION: Left renal cortical loss and relative atrophy compatible with medical renal disease. No hydronephrosis. . Procedures Procedure Status Date Provider(s) X-RAY EXAM OF HAND completed 11/16/14 US EXAM ABDO BACK WALL COMP completed 12/31/14 Encounters Encounter Location Date/Time Departed Emergency Room [facility] 02/01/15 10:53pm Registered Clinic [facility] 12/31/14 10:31am Registered [facility] 11/16/14 11:01am Recent Diagnosis
--- OUTSIDE RECORDS SUMMARY | 2017-01-05 03:36 | XMS REPORT | Continuity of Care Document ---
Author Author Sally BLOOM, Robert WRAY W [facility] Address [address] [place] [address] [place] [address] Phone Care Team Providers Care Table Attendant Name Role Phone Robert Zavala PP Unavailable Payers Payer name Insurance type Covered republican ID Authorization(s) Unknown Problems Condition Effective Dates (start - stop) Clinical Status Diabetes Mellitus Type 2, Uncomplicated - *Controlled Hypertension, Benign - *Chronic Osteoarthrosis, generalized, involving unspecified site - * Controlled COPD - *Controlled Other and unspecified hyperlipidemia - *Controlled Contact dermatitis and other eczema, unspecified cause - *Acute Hypertension, Benign - *Controlled COPD - *Controlled [...] generalized, involving unspecified site - * Chronic Insomnia, Other - *Chronic Depression - *Controlled [...] / Malaise - *Chronic Obesity - *Chronic Headache - *Acute Hypertension, Benign - *Chronic Other abnormal blood chemistry - Improved COPD - *Controlled Sleep Apnea - *Controlled CAD, Unspecified - *Controlled Obesity - *Chronic Depression - *Controlled Abdominal Pain - *Acute COPD - *Chronic [...] Dosage Effective Dates (start - stop) Status Victoza 3-Billy 0.6 mg/0.1 mL (18 mg/3 mL) subcutaneous pen injector inject 0.3 milliliter (1.8MG) by subcutaneous route every day 1.8 MG - Active Victoza 3-Billy 0.6 mg/0.1 mL (18 mg/3 mL) subcutaneous pen injector inject 0.3 milliliter (1.8MG) by subcutaneous route every day 1.8 MG - No Longer Active Diflucan 200 mg tablet take 1 tablet (200MG) by oral route every day as needed 200 MG - No Longer Active Senna Lax [...] needed for sleep 5 MG - Active [place] 5 mg-325 mg tablet take 1 - [...] 1 po bid 50 MG - Active Coreg 25 mg tablet [...] Height Weight Pulse Rate Blood Pressure Temperature /09:37:00 62.00 in 278.00 lbs 160/90 mm[Hg] 96.8 F Procedures Procedure Date Unknown Encounters Encounter Location Date Patient Visit [facility] Patient Visit [facility] Patient Visit [facility] Patient Visit [facility] Patient Visit [facility] Patient Visit [facility] Patient Visit [facility] Patient Visit [facility] Patient Visit [facility] Patient Visit [facility] Patient Visit [facility] Patient Visit [facility] Patient Visit [facility] Patient Visit [facility] New Patient Visit [facility] New Patient Visit [facility] Patient Visit [facility] Patient Visit [facility] Patient Visit [facility] Patient Visit Conversion Patient Visit [facility] Advance Directives Directive Effective Date Unknown
--- OUTSIDE RECORDS SUMMARY | 2017-01-05 03:36 | XMS REPORT ---
Author Author Ingrid Rendon [facility] eClinicalWorks Address Unknown Phone Unavailable Care Team Providers Care Sales Representative Advertising Name Role Phone Ingrid Rendon Unavailable Allergies No Known Allergies Problems Problem Type Condition ICD-9 Code Onset Dates Condition Status Problem Congestive heart failure, unspecified 428.0 Active Problem Essential hypertension, benign 401.1 Active Problem Chronic kidney disease, Stage III (moderate) 585.3 Active Problem Depressive disorder, not elsewhere classified 311 Active Medications Medication Code System Code Instructions Start Date End Date Status Dosage Diflucan [facility] [address]-32 150 MG Orally Once a day,may repeat in 3 days if symptoms persist Jul 05, 2015 Jul 07, 2015 1 tablet Nystatin [facility] [address]-49 339201 UNIT/GM Externally Twice a day for 2 weeks and then prn Jul 04, 2015 Aug 03, 2015 1 application to affected area Results No Known Results Summary Purpose eClinicalWorks Submission
--- OUTSIDE RECORDS SUMMARY | 2017-01-05 03:36 | XMS REPORT ---
Author Author Ingrid Rendon [facility] eClinical[employer] Address Unknown Phone Unavailable Care Team Providers Care Analyst Programmer Name Role Phone Ingrid Rendon Unavailable Allergies [...]
[2017-01-05 03:51] VITALS: Ht 157.5 cm; Wt 130.6 kg
--- NOTE | 2017-01-05 03:54 | ERPDOC ---
Departure Disposition Decision Date: Jan 05, 2017 Disposition Decision Time: 07:38 Disposition: 01 DISCHARGED HOME, SELF-CARE Impression Impression Impression: Primary Impression: RUQ Abdominal Pain Severity: Moderate Condition: Stable Seen By: Physician only Referrals: OSCAR COLON APRN (Family) Follow-up for reevaluation with possible MRCP Patient Instructions: Abdominal Pain (ED) Problems/Meds/Labs Reviewed?: Yes Medications reviewed and manag: Yes Additional Instructions: We'll provide Compazine for spasm, evening to follow-up with your primary medical physician for reevaluation and possible MRCP, Dr. Chavez will be happy to consult with [facility] for arrangement of that Follow up care ordered?: Yes Mental Status: Alert, Oriented Scripts Prochlorperazine Maleate (Compazine) 10 Mg Tablet 10 MG PO QID Y for PAIN &/OR SPASM, #20 TAB Take 1 tablet, by mouth, 4 times a day. Prov: LORENA BUCHANAN MD 01/05/17 HPI - Abdominal Pain General Chief Complaint: Abdominal Pain Stated Complaint: ABD PAIN Time Seen by Provider: 03:51 Source: patient, family History/Exam Limitations: no limitations HPI - Abdominal Pain Initial Comments Patient is a 66-year-old female presents emergency room for right upper quadrant abdominal pain. Patient has a prior cholecystectomy, however 2 days ago she developed some abdominal pain with associated nausea and vomiting. Patient did see her primary medical physician who prescribed her pills for nausea but nothing for pain. Pain continues so patient decided to present to the ER for evaluation Allergies: Coded Allergies: codeine (Unverified Adverse Reaction, Unknown, 01/05/17) Past History Past Medical History Metabolic: hypercholesterolemia, hypertension Cardiac: CAD, CHF, NM Respiratory: COPD GI: gallbladder disease Female: kidney stones Psychological: bipolar, depression Surgical History General: appendix, gallbladder, hernia Cardiac: cardiac cath, cardiac stent Reproductive/: hysterectomy Family History Family PMH: FOUND: hypertension Vaccines Hx Influenza Vaccination: Yes Hx Pneumococcal Vaccination: Yes Social History Alcohol Intake: none Review of Systems Constitutional Constitutional: appetite decrease, DENIES: chills, dizziness, fever, weakness ENMT Sinuses: DENIES: congestion, rhinorrhea Cardiovascular Cardiac: DENIES: chest pain, dyspnea on exertion Pulmonary Respiratory: DENIES: cough, dyspnea, sputum, tachypnea GI Upper Abdomen: nausea, pain, vomiting Lower Abdomen: DENIES: constipation, diarrhea, pain General: DENIES: frequency, urgency Musculoskeletal General: DENIES: cramps, pain, weakness Integumentary Skin: DENIES: color change, itching, rash Endocrine Endocrine: DENIES: heat/cold intolerance Hematologic/Lymphatic Hematologic/Lymphatic: DENIES: anemia Physical Exam General General Nourishment: well nourished, well developed General Body Habitus: well groomed Vitals and Pain Weight: Kilograms: Height (feet): 5 Height (inches): 2 Triage Pain Scale: RN VS reviewed by Provider: Yes Eyes (brief) Eyes Brief: found: EOMI ENMT (brief) ENMT Brief: FOUND: mucosa moist, normal dentition, NOT FOUND: nasal erythema, pharnyx erythema, tonsillar deviation Neck (brief) Neck: NOT FOUND: adenopathy, spasm, tenderness Respiratory (brief) Respiratory: FOUND: clear all ramirez, equal bilaterally, NOT FOUND: rales, wheezes Cardiovascular (brief) Cardiac: FOUND: regular rate, regular rhythm Capillary Refill: <2 sec Abdomen Palpation: FOUND: Brantley's sign, soft, tender (right upper quadrant tenderness) , NOT FOUND: Obturator sign, Psoas sign, hepatomegaly, involuntary guarding, splenomegaly, voluntary guarding Auscultation: FOUND: normoactive Lymphatic (brief) Lymphatic Brief: NOT FOUND: adenopathy Musculoskeletal (brief) Musculoskeletal Brief: NOT FOUND: spasm, tenderness Integumentary (brief) Integumentary Brief: FOUND: dry, pink, warm Neurologic (brief) Neurological Brief: FOUND: CN w/o gross def to obs, motor-no gross deficits, sensory-no gross deficits Psychiatric (brief) Psychiatric Brief: FOUND: alert, oriented Differential Diagnoses Considering: Acute NM, Appendicitis, Bowel Obstruction, Constipation, Gastroenteritis, Other (retained stones) Progress Results/Orders Orders Lab Results Medications Current ED Medications Sodium Chloride (Normal Saline IV) 1,000 ml @ 999 mls/hr Q1H1M ONCE IV Last administered on 01/05/17 04:14; Start 01/05/17 at 04:00; Stop 01/05/17 at 05:00; Status DC Prochlorperazine Edisylate (Compazine) 10 mg O ONCE IV Last administered on 04:17; Start 01/05/17 at 04:00; Stop 01/05/17 at 04:01; Status DC Morphine Sulfate (Morphine) 4 mg O ONCE IV Last administered on 01/05/17 04:18 ; Start 01/05/17 at 04:00; Stop 01/05/17 at 04:01; Status DC Iohexol 1 bottle 1 bottle STK-MED ONCE .ROUTE ; Start 01/05/17 at 06:00; Stop 01/05/17 at 06:01; Status DC Sodium Chloride (NS) 100 ml @ As Directed STK-MED ONCE .ROUTE ; Start 01/05/17 at 06:00; Stop 01/05/17 at 06:01; Status DC Sodium Chloride (Iv Flush) 10 ml STK-MED ONCE .ROUTE ; Start 01/05/17 at 06:00; Stop 01/05/17 at 06:01; Status DC Sumatriptan Succinate (Imitrex) 6 mg O ONCE SQ Last administered on 01/05/17 07:55; Start 01/05/17 at 07:45; Stop 01/05/17 at 07:46; Status DC Progress Progress Discuss case briefly with Dr. Chavez, he would recommend an outpatient MRCP, no need for acute intervention CT CT : CT: Abd/Pelvis IV contrast Interpretation: Abnormal, Reviewed Written Report (questionable increased tone in the common bile duct however no ductal dilatation) LORENA BUCHANAN MD Jan 05, 2017 03:54 Absolute Neutrophils (auto) 6.7T/MM3 Absolute Lymphocytes (auto) 0.5T/MM3 Absolute Monocytes (auto) 0.3T/MM3 Absolute Eosinophils (auto) 0.2T/MM3 Absolute Basophils (auto) 0.0T/MM3 Turbidity < 20 Sodium Level 142MEQ/L Potassium Level 4.6MEQ/L Chloride Level 106MEQ/L Carbon Dioxide Level 27MEQ/L Anion Gap 9MEQ/L Blood Urea Nitrogen 22.0MG/DL Creatinine 1.1MG/DL Glomerular Filtration Rate Calc 50 BUN/Creatinine Ratio 20RATIO Glucose Level 134MG/DL Calculated Osmolality 278MOSM/KG Calcium Level 9.5MG/DL Total Bilirubin 0.90MG/DL Icterus Index < 2 Aspartate Amino Transf (AST/SGOT) 32U/L Alanine Aminotransferase (ALT/SGPT) 47U/L Alkaline Phosphatase 99U/L Troponin I < 0.012ng/ml Total Protein 6.7G/DL Albumin 4.0G/DL Globulin 2.7G/DL Albumin/Globulin Ratio 1.5RATIO Lipase 42U/L Chemistry Specimen Hemolysis < 15 Urine Collection Type Voided-not cc-midstr Urine Color Yellow Urine Turbidity Clear Urine pH 5.5 Urine Specific [place] 1.025 Urine Protein Negative Urine Glucose (UA) Negative Urine Ketones Negative Urine Blood Negative Urine Nitrite Negative Urine Bilirubin Negative Urine Urobilinogen 0.2EU/DL Urine Leukocyte Esterase Negative Urinalysis Comment Microscopic not ind. Medications Current ED Medications Sodium Chloride (Normal Saline IV) 1,000 ml @ 999 mls/hr Q1H1M ONCE IV Last administered on 01/05/17 04:14; Start 01/05/17 at 04:00; Stop 01/05/17 at 05:00; Status DC Prochlorperazine Edisylate (Compazine) 10 mg O ONCE IV Last administered on 04:17; Start 01/05/17 at 04:00; Stop 01/05/17 at 04:01; Status DC Morphine Sulfate (Morphine) 4 mg O ONCE IV Last administered on 01/05/17 04:18 ; Start 01/05/17 at 04:00; Stop 01/05/17 at 04:01; Status DC Iohexol 1 bottle 1 bottle STK-MED ONCE .ROUTE ; Start 01/05/17 at 06:00; Stop 01/05/17 at 06:01; Status DC Sodium Chloride (NS) 100 ml @ As Directed STK-MED ONCE .ROUTE ; Start 01/05/17 at 06:00; Stop 01/05/17 at 06:01; Status DC Sodium Chloride (Iv Flush) 10 ml STK-MED ONCE .ROUTE ; Start 01/05/17 at 06:00; Stop 01/05/17 at 06:01; Status DC Sumatriptan Succinate (Imitrex) 6 mg O ONCE SQ ; Start 01/05/17 at 07:45; Stop 01/05/17 at 07:46 LORENA BUCHANAN MD Jan 05, 2017 03:54
[2017-01-05] MEDS ORDERED: PROCHLORPERAZINE 10mg/2ml INJECTION IV ONE (04:00)
[2017-01-05] MEDS ORDERED: MORPHINE SULFATE 4 MG SYRINGE IV ONE (04:00)
[2017-01-05] MEDS ORDERED: NORMAL SALINE 1,000 ML IV ONE (04:00)
--- OUTSIDE RECORDS SUMMARY | 2017-01-05 04:03 | XMS REPORT | Continuity of Care Document ---
Author Author [facility] Organization [facility] Address Unknown Phone Unavailable Allergies Medications Problems Procedures Results Encounters ACCT No. Visit Date/Time Discharge Status Pt. Type Provider Facility Loc./Unit Complaint [id number] 01/05/2014 09:37:00 01/05/2014 23 :59:59 [facility] Outpatient [id number] 12/14/2013 10:56:00 12/14/2013 23 :59:59 [facility] Outpatient [id number] 11/27/2013 10:42:00 11/27/2013 23 :59:59 [facility] Outpatient
--- OUTSIDE RECORDS SUMMARY | 2017-01-05 04:05 | XMS REPORT | Continuity of Care Document ---
Author Author [facility] Organization [facility] Address Unknown Phone Unavailable Support Name Relationship Address Phone DINORA ROBERTS MD Caregiver [address] [place] [phone] FRANK GUTIERREZ MD Caregiver [address] [place] [phone] TERRELL CALVO Next Of Kin [address] [place], [place] [id number] Insurance Providers Payer Name Policy Number Subscriber Name Relationship Medicare [id number] Eva Calvo 17 Self Other A Insurance [id number] Eva Calvo 17 Self Advance Directives Directive [...] F (96.8 - 99.1) Temperature (Calculated Celsius) 36.27619 degrees C (36.0 - 37.3) Pulse Rate [...] 2012 11:15am 102.2 MG/DL - Urine Specific [place] November 22, 2013 10:30pm 1.020 - Has [...] 04, 2012 9:45pm LAB TEST FORM REQUEST [id number] - HDL Cholesterol Direct October 12, 2012 6:30am 49 MG/DL N 40-60 Glomerular Filtration Rate Calc November 22, 2013 10:00pm 63 - Immature Granulocyte # (Auto) November 22, 2013 10:00pm 0.02 T/MM3 N 0.00 -0.03 Immature Granulocyte % (Auto) November 22, 2013 10:00pm 0.3 % N 0.0-0.5 SE-Ciw-C-Type Natriuretic Peptide October 11, 2012 12:39pm 73 [...] Encounters Encounter Location Date/Time Departed Emergency Room [facility] 05/12/14 8:10am Recent Diagnosis
--- OUTSIDE RECORDS SUMMARY | 2017-01-05 04:07 | XMS REPORT | Continuity of Care Document ---
Author Author [facility] Organization [facility] Address Unknown Phone Unavailable Support Name Relationship Address Phone GERMÁN CLEANING MD Caregiver [facility] [address] [place] [address] Unavailable OSCAR COLON APRN Caregiver [address] [place], [place] [phone] TERRELL CALVO Next Of Kin [address] [place], [place] [id number] Insurance Providers Payer Name Policy Number Subscriber Name Relationship Medicare [id number] Eva Calvo 17 Self Other A Insurance [id number] Eva Calvo 17 Self Advance Directives Directive [...] F (96.8 - 99.1) Temperature (Calculated Celsius) 36.35328 degrees C (36.0 - 37.3) Pulse Rate [...] 04, 2012 9:45pm LAB TEST FORM REQUEST [id number] - Lipase February 01, 2015 11:25pm 56 [...] 01, 2015 11:25pm 6.5 % N 0-9.0 GT-Dhr-X-Type Natriuretic Peptide October 11, 2012 12:39pm 73 [...] 2012 11:15am 102.2 MG/DL - Urine Specific [place] February 01, 2015 11:04pm 1.025 - Has [...] N 4.5-11.0 Name: EVA CALVO Unit #: [id number] : 1950 Sex: F [facility]: [facility] DOS: 12/31/14 Signed Report #: [id number] DIAGNOSTIC IMAGING REPORT TYPE OF EXAM: US [...] Encounters Encounter Location Date/Time Departed Emergency Room [facility] 02/01/15 10:53pm Registered Clinic [facility] 12/31/14 10:31am Registered [facility] 11/16/14 11:01am Recent Diagnosis
[2017-01-05 04:29] LABS: BASOPHILS % (AUTO) 0.1 % (0-2); EOSINOPHILS # (AUTO) 0.2 T/MM3 (0-0.5); EOSINOPHILS % (AUTO) 2.1 % (0-4); HCT - HEMATOCRIT 42.5 % (36-46); HGB - HEMOGLOBIN 13.2 GM/DL (12-16); IMMATURE GRANULOCYTE # (AUTO) 0.01 T/MM3 (0.00-0.03); IMMATURE GRANULOCYTE % (AUTO) 0.1 % (0.0-0.5); LYMPHOCYTES # (AUTO) 0.5 T/MM3 (1-4.8); LYMPHOCYTES % (AUTO) 6.2 % (23-45); MEAN CORPUSCULAR HGB 27.7 UUG (26-34); MEAN CORPUSCULAR HGB CONC(MCHC 31.1 GM/DL (31-37); MEAN CORPUSCULAR VOLUME 89.3 UM3 (80-100); MEAN PLATELET VOLUME 11.1 UM3 (9.4-12.4); MONOCYTES # (AUTO) 0.3 T/MM3 (0-0.8); MONOCYTES % (AUTO) 3.9 % (0-9.0); NEUTROPHILS #(AUTO)-ABSOLUTE 6.7 T/MM3 (1.8-7.7); NEUTROPHILS % (AUTO) 87.6 % (33-66); RED BLOOD COUNT 4.76 M/MM3 (4.00-5.20); WBC - WHITE BLOOD COUNT 7.6 T/MM3 (4.5-11.0)
[2017-01-05 04:54] LABS: ALBUMIN/GLOBULIN RATIO 1.5 RATIO (1.1-2.2); ALKALINE PHOSPHATASE 99 U/L (38-126); ALT (SGPT) 47 U/L (9-52); ANION GAP 9 MEQ/L (5-15); AST (SGOT) 32 U/L (14-36); BUN/CREATININE RATIO 20 RATIO (6-26); CALCIUM 9.5 MG/DL (8.4-10.2); CHLORIDE 106 MEQ/L (98-107); CO2 - CARBON DIOXIDE 27 MEQ/L (22-30); CREATININE 1.1 MG/DL (0.7-1.2); GLOMERULAR FILTRATION RATE 50; GLUCOSE 134 MG/DL (65-110); LIPASE 42 U/L (23-300); POTASSIUM 4.6 MEQ/L (3.6-5); SODIUM 142 MEQ/L (134-144); TOTAL PROTEIN 6.7 G/DL (6.3-8.2)
[2017-01-05 05:53] LABS: BLOOD, URINE NEGATIVE (NEGATIVE); COLOR,URINE YELLOW (YELLOW); LEUKOCYTE ESTERASE ,URINE NEGATIVE (NEGATIVE); NITRITE,URINE NEGATIVE (NEGATIVE); UROBILINOGEN,URINE 0.2 EU/DL (NORMAL)
[2017-01-05] MEDS ORDERED: NORMAL SALINE 100 ML ONE (06:00)
[2017-01-05] MEDS ORDERED: IOHEXOL 300 MG/ML 100ml INJECTION ONE (06:00)
[2017-01-05] MEDS ORDERED: SALINE FLUSH 10ml SYRINGE ONE (06:00)
--- NOTE | 2017-01-05 06:08 | NUR ---
TO CT PER CART
--- NOTE | 2017-01-05 06:30 | NUR ---
RETURNED FROM CT
--- NOTE | 2017-01-05 07:24 | NUR ---
H/A PT STATES SHE IS GETTING A MIGRAINE, STATES SHE USUALLY TAKES IMITREX. DR. RYAN AND DR. BUCHANAN NOTIFIED.
[2017-01-05] MEDS ORDERED: PROC-14 PO (07:40)
[2017-01-05] MEDS ORDERED: SUMATRIPTAN 6 MG/0.5 ML INJECTION SQ ONE (07:45)
--- NOTE | 2017-01-05 08:02 | NUR ---
Note maeve in EDM - 01/05/17 at 0803 by TARYN UPDATE EMS PRESENT, REPORT TO ASHLYN FERRELL AT [facility] BURN ICU RM 28. PT WITH EMS, SPOUSE TAKING ALL BELONGINGS.
[2017-01-05 08:35] VITALS: BP 146/64; PULSE 95; RESP 20; TEMP 98.5; O2SAT 93
--- NOTE | 2017-01-05 08:35 | NUR ---
DISMISSED PT IS FEELING BETTER. DISCHARGED PER WC ACCOMPANIED BY RN &
--- NOTE | 2017-01-05 08:35 | NUR ---
СЕРГЕЙ PT SAYS RUSHING IS IMPROVED TO 01/11.
--- NOTE | 2017-01-06 09:30 | DI ---
Indication: ITS.REASON: right-sided abdominal pain PROCEDURE: CT ABD/PELVIS W/CONTRAST ONLY: Encounter: Initial Comparison: February 02, 2015 Technique: Axial CT images were performed through the abdomen and pelvis after the administration of intravenous contrast. Coronal and sagittal two-dimensional reformats. Automated Exposure Control and Iterative Reconstruction dose reducing techniques were utilized. Contrast: Omnipaque 300 99 mL Findings: The lung bases are grossly clear. The liver is slightly enlarged and decreased in attenuation relative to the spleen suggesting steatosis. No hepatic mass or bile duct dilatation. There are continued stones in the common duct which have increased in number without significant ductal dilatation. The gallbladder is surgically absent. The spleen, pancreas and adrenal glands are within normal limits. Left renal atrophy. Right kidney is grossly unremarkable. No abdominal or pelvic lymphadenopathy. Prior hernia repair. Uterus is surgically absent. Bladder is grossly normal. No free fluid. No evidence of a bowel obstruction. Bone windows show no acute findings. Impression: No acute disease process seen. Chronic choledocholithiasis has increased. There is a preliminary report by [employer]. .
== END 2017-01-05 08:35 | disposition home or self-care (01) ==
LOC: ED 03:21
DX: R10.11 Right upper quadrant pain (principal); R11.2 Nausea with vomiting, unspecified
CPT/HCPCS: 36415; 74177; 80053; 81003; 83690; 84484; 85025; 96361; 96372; 96374; 96375; 99284; A9270; J0780; J7030; J7050; Q9967